=== PATIENT | female | born 1930 | race Caucasian/White ===

== ENCOUNTER → 2016-09-07 | Outpatient (CLI) | payer BC ==
[~2016-09-07] MED LIST: ACET-1311 PO; AGG PO; ATEN50TA8 PO; CHLO10CA7 PO; CNT PO; CRAN1CAP6 PO; GLYB2.5T7 PO; LSN25 PO; LXP10 PO; METH1TAB5 PO; POLYSOL OPB; POLYSOL4 OPB; POTA10CA28 PO; SIMV10TA2 PO; TRIA37.5 PO
== END | disposition home or self-care (01) ==
LOC: C.LABSPEC 12:27
PROVIDERS: ATTEND Internal Medicine
DX: N39.0 Urinary tract infection, site not specified (principal)

== ENCOUNTER → 2017-01-24 | Outpatient (CLI) | payer BC ==
[~2017-01-24] MED LIST changes: -GLYB2.5T7 PO; +METH-1305 PO; -METH1TAB5 PO; -POTA10CA28 PO
== END | disposition home or self-care (01) ==
LOC: C.LABSPEC 14:59
PROVIDERS: ATTEND Internal Medicine
DX: N39.0 Urinary tract infection, site not specified (principal)

== ENCOUNTER → 2017-04-25 | Outpatient (CLI) | payer BC ==
[~2017-04-25] MED LIST changes: -METH-1305 PO; +METH1TAB5 PO
== END | disposition home or self-care (01) ==
LOC: C.LABSPEC 14:42
PROVIDERS: ATTEND Internal Medicine
DX: N39.0 Urinary tract infection, site not specified (principal)

== ENCOUNTER → 2017-06-16 | Outpatient (CLI) | payer BC ==
[~2017-06-16] MED LIST changes: +METH-1305 PO; -METH1TAB5 PO
--- NOTE | 2017-06-16 15:24 | MAMMOGRAPHY REPORT ---
BILATERAL DIGITAL DIAGNOSTIC MAMMOGRAM TOMOSYNTHESIS WITH CAD: 06/16/2017 CLINICAL HISTORY: History of right breast cancer status post lumpectomy Sep 2015. 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 The patient did not have any radiation therapy. The patient denies any current complaints. TECHNIQUE: Breast tomosynthesis in addition to standard 2D mammography was performed. Current study was also evaluated with a Computer Aided Detection (CAD) system. Bilateral CC and MLO 2-D and tomosy nthesis images and spot magnification bilateral cc and ML views were obtained. COMPARISON: Comparison is made to exams dated: 06/13/2016 mammogram, 06/13/2016 specimen, 06/13/2016 localization, 05/17/2016 ultrasound biopsy, and 04/19/2016 ultrasound - [facility]. BREAST COMPOSITION: There are scattered areas of fibroglandular density in both breasts. FINDINGS: There are stable postsurgical changes in the right upper outer quadrant from prior lumpect mercedes, including stable density, architectural distortion, surgical clips, and fat necrosis at the lump ectomy bed. A linear scar marker denotes a scar in the right upper outer breast. There are new post surgical changes in the left upper outer quadrant from prior lumpectomy, including new density, arch itectural distortion, and surgical clips at the lumpectomy bed. A linear scar marker denotes a scar on the left upper outer breast. Spot magnification views of bilateral lumpectomy beds demonstrate no suspicious masses or clusters of microcalcifications. The remainder of both breasts are negative, without suspicious masses, calcifications, or areas of ar chitectural distortion noted. IMPRESSION: ACR-BI-RADS CATEGORY 3: PROBABLY BENIGN Expected postsurgical changes in bilateral breasts from prior lumpectomies, without mammographic evid ence of malignancy. Recommend bilateral diagnostic tomosynthesis mammograms in 6 months to reevaluat e posttreatment changes (30 minute time slot). The patient has been verbally notified of the results. Approximately 10% of breast cancers are not detected with mammography. A negative mammographic report should not delay biopsy if a clinically suggestive mass is present. Fiona Maria M.D. /:06/16/2017 12:15:59 Logging Contractor: Alda Banks, [facility] letter sent: Personal History 3 BI-RADS Code: ACR-BI-RADS Category 3: Probably Benign
== END | disposition home or self-care (01) ==
LOC: C.MAMM 09:10
PROVIDERS: ATTEND Internal Medicine
DX: Z08 Encounter for follow-up examination after completed treatment for malignant neoplasm (principal); Z85.3 Personal history of malignant neoplasm of breast

== ENCOUNTER → 2017-07-27 | Outpatient (CLI) | payer BC ==
[2017-07-27 13:07] LABS: URINE APPEARANCE TURBID (CLEAR); URINE BILIRUBIN NEG (NEG); URINE COLOR DK YELLOW; URINE EPITHELIAL CELL AUTO >30 /lpf (0-5); URINE NITRITE NEG (NEG); URINE PH 7.5 (4.5-7.5); URINE SPECIFIC GRAVITY 1.019 (1.000-1.030); UROBILINOGEN NEG (NEG)
[2017-07-27 13:14] LABS: MANUAL MICROSCOPIC REQUIRED? NO; REVIEW REQ? YES; SULFASALICYLIC ACID NEG (NEG)
== END | disposition home or self-care (01) ==
LOC: C.LABSPEC 12:04
PROVIDERS: ATTEND Internal Medicine
DX: N39.0 Urinary tract infection, site not specified (principal)

== ENCOUNTER 2017-11-12 14:23 | Inpatient (IN) | payer BC, OTHER ==
[~2017-11-12] VITALS: Ht 162.6 cm; Wt 82.0 kg
--- NOTE | 2017-11-12 14:59 | EMERGENCY ROOM VISIT NOTE ---
History Report prepared by Ijeoma: Mary Benavides Under the Supervision of: Dr. Andrae Pop M.D. First contact with patient: 14:47 Chief Complaint: URINARY SYMPTOMS Stated Complaint: UTI History of Present Illness The patient is an 87 year old female who presents to the Emergency Room with complaints of persistent urinary symptoms that started a week ago. The patient started to become confused 3 days ago. Per the patient's family, she slid out of bed this morning and fell on her lower back. She denies any vomiting, shortness of breath, abdominal pain, or rashes. The patient's back has been hurting since last week. The patient typically uses a walker. She is on Aggrenox. The patient is mildly confused. Source of History: patient, family Onset: 1 week ago Position: other (urinary symptoms) Timing: other (persistent) Associated Symptoms: + back pain, + weakness, No SOB, No vomiting, No abdominal pain Review of Systems See HPI for pertinent positives & negatives. A total of 10 systems reviewed and were otherwise negative. Past Medical & Surgical Medical Problems: (1) Breast cancer (2) History of CVA (cerebrovascular accident) (3) Shingles (4) Urinary tract infection Surgical Problems: (1) History of cataract surgery Family History Diabetes mellitus FH: heart disease FHx: cancer Hypertension Social History Smoking Status: Former Smoker Alcohol Use: none Drug Use: none Housing Status: lives alone Occupation Status: retired Current/Historical Medications Scheduled Atenolol (Tenormin), 50 MG PO QAM Chlordiazepoxide (Librium), 10 MG PO BID Cranberry (Vaccinium Macrocarp (Cranberry), 250 MG PO BID Dipyridamole/Aspirin (Aggrenox 25-200 mg), 1 CAP PO BID Escitalopram Oxalate (Escitalopram Oxalate), 10 MG PO QAM Glyburide (Diabeta), 1 TAB PO DAILY Lisinopril (Lisinopril), 2.5 MG PO QAM Methenamine Hippurate (Methenamine Hippurate), 1 GM PO Q12 Multivitamins/Minerals (Certavite/Antioxidants), 1 TAB PO QAM Polyethylene Glycol-Propylene (Systane), 1 DROP OPB HS Polyvinyl Alcohol-Povidone (Op (Refresh), 1 DROP OPB DAILY Potassium Chloride (Klor-Con Sprinkle), 1 CAP PO BID Simvastatin (Zocor), 10 MG PO HS Triamterene/Hctz (Dyazide 37.5MG/25MG), 1 TABLET PO QAM Scheduled PRN Acetaminophen (Tylenol), 650 MG PO q4-6hours PRN for Pain Diphenhydramine HCl (Diphenhydramine HCl), 1 CAP PO Q4 PRN for Itching Allergies Coded Allergies: Cephalexin (Verified Allergy, Intermediate, rash, hives, 11/12/17) Ciprofloxacin (Verified Allergy, Intermediate, hives, 11/12/17) Nitrofurantoin (Verified Allergy, Intermediate, hives, 11/12/17) Penicillins (Verified Allergy, Intermediate, hives, 11/12/17) Ephraim (Verified Allergy, Intermediate, rash, 11/12/17) Sulfa Antibiotics (Verified Allergy, Intermediate, HIVES, 11/12/17) Physical Exam Vital Signs Date Time Temp Pulse Resp B/P (MAP) Pulse Ox O2 Delivery O2 Flow Rate FiO2 11/12/17 16:56 96 Room Air 11/12/17 16:20 65 20 152/77 96 Room Air 11/12/17 14:46 36.3 76 20 108/70 95 Room Air Physical Exam GENERAL: Patient is tired appearing and in no acute distress. Mildly confused, elderly. Difficulty ambulating from wheel chair to bed. EYES: No scleral icterus, unremarkable pupils. ENT: Mucous membranes moist, no nasal congestion. NECK: No masses appreciated, no meningismus, trachea is midline. RESPIRATORY: No dyspnea. Clear to auscultation and equal bilaterally. No wheeze , no rhonchi. CARDIOVASCULAR: Regular rate and rhythm. No murmurs, rubs, gallops appreciated. GASTROINTESTINAL: Abdomen soft, nontender, no peritonitis. Bowel sounds positive. No masses appreciated. BACK: No midline tenderness, no CVA tenderness EXTREMITIES: Normal motion all extremities, no cyanosis, no edema. NEUROLOGIC: Alert and oriented, no acute motor or sensory deficits, no focal weakness, cranial nerves grossly intact. SKIN: No rash, no jaundice, no diaphoresis. Medical Decision & Procedures ER Provider Diagnostic Interpretation: Radiology results and stated below per my review and radiologist interpretation: LUMBAR SPINE 2 OR 3 VIEWS CLINICAL HISTORY: 87 years-old Female presenting with low back pain, UTI. TECHNIQUE: Frontal, lateral, and coned in lateral views of the lumbar spine were obtained. COMPARISON: None. FINDINGS: No significant scoliosis. Normal lumbar lordosis. Vertebral bodies maintain normal height and alignment. Mild intervertebral disc height loss noted at L5-S1 with vacuum disc phenomenon. Remainder of intervertebral discs heights preserved. Multilevel degenerative changes evidenced by osteophytosis to varying degrees at every level. Facet arthropathy suggested at L5-S1 with questionable osseous neural foraminal narrowing at this level. No compression deformity or evidence of subluxation. Atherosclerosis. IMPRESSION: Multilevel degenerative changes without evidence of a compression fracture. Electronically signed by: Obi Guevara M.D. 11/12/2017 4:27 PM Dictated Date/Time: 11/12/2017 4:25 PM CHEST 1 VW FRONT-NOT PORTABLE CLINICAL HISTORY: 87 years-old Female presenting with FEVER. TECHNIQUE: Portable upright AP view of the chest was obtained. COMPARISON: 07/19/2016. FINDINGS: Atherosclerosis of the aortic arch. Cardiac silhouette normal in size. Minimal left basilar opacity. Apparent right apical opacity likely extensive calcification at the first right costochondral joint. No large pleural effusion or pneumothorax. Osseous structures normal. Upper abdomen normal. IMPRESSION: 1. Minimal left basilar opacity likely atelectasis. No convincing evidence of a focal infiltrate to suggest pneumonia. Electronically signed by: Obi Guevara M.D. 11/12/2017 4:25 PM Dictated Date/Time: 11/12/2017 4:24 PM Laboratory Results 11/12/17 15:08 Red Blood Count 4.21, Mean Corpuscular Volume 93.6, Mean Corpuscular Hemoglobin 30.9, Mean Corpuscular Hemoglobin Concent 33.0, Mean Platelet Volume 9.4, Neutrophils (%) (Auto) 59.6, Lymphocytes (%) (Auto) 25.4, Monocytes (%) (Auto) 10.0, Eosinophils (%) (Auto) 4.0, Basophils (%) (Auto) 0.6, Neutrophils # (Auto ) 4.72, Lymphocytes # (Auto) 2.01, Monocytes # (Auto) 0.79, Eosinophils # (Auto ) 0.32, Basophils # (Auto) 0.05 11/12/17 15:08 Test 11/12/17 15:08 11/12/17 15:18 11/12/17 15:30 White Blood Count 7.92 K/uL (4.8-10.8) Red Blood Count 4.21 M/uL (4.2-5.4) Hemoglobin 13.0 g/dL (12.0-16.0) Hematocrit 39.4 % (37-47) Mean Corpuscular Volume 93.6 fL (80-100) Mean Corpuscular Hemoglobin 30.9 pg (25-34) Mean Corpuscular Hemoglobin Concent 33.0 g/dl (32-36) Platelet Count 225 K/uL (130-400) Mean Platelet Volume 9.4 fL (7.4-10.4) Neutrophils (%) (Auto) 59.6 % Lymphocytes (%) (Auto) 25.4 % Monocytes (%) (Auto) 10.0 % Eosinophils (%) (Auto) 4.0 % Basophils (%) (Auto) 0.6 % Neutrophils # (Auto) 4.72 K/uL (1.4-6.5) Lymphocytes # (Auto) 2.01 K/uL (1.2-3.4) Monocytes # (Auto) 0.79 K/uL (0.11-0.59) Eosinophils # (Auto) 0.32 K/uL (0-0.5) Basophils # (Auto) 0.05 K/uL (0-0.2) RDW Standard Deviation 47.3 fL (36.4-46.3) RDW Coefficient of Variation 13.8 % (11.5-14.5) Immature Granulocyte % (Auto) 0.4 % Immature Granulocyte # (Auto) 0.03 K/uL (0.00-0.02) Prothrombin Time 10.5 SECONDS (9.0-12.0) Prothromb Time International Ratio 1.0 (0.9-1.1) Anion Gap 6.0 mmol/L (3-11) Estimated GFR () 30.2 Estimated GFR (Non- 26.1 BUN/Creatinine Ratio 23.8 (10-20) Calcium Level 8.7 mg/dl (8.5-10.1) Total Bilirubin 0.4 mg/dl (0.2-1) Direct Bilirubin 0.1 mg/dl (0-0.2) Aspartate Amino Transf (AST/SGOT) 19 U/L (15-37) Alanine Aminotransferase (ALT/SGPT) 30 U/L (12-78) Alkaline Phosphatase 55 U/L (45-117) Troponin I < 0.015 ng/ml (0-0.045) Total Protein 7.7 gm/dl (6.4-8.2) Albumin 3.6 gm/dl (3.4-5.0) Procalcitonin < 0.05 ng/ml (0-0.5) Bedside Lactic Acid Venous 1.76 mmol/L (0.90-1.70) Urine Color DK YELLOW Urine Appearance CLOUDY (CLEAR) Urine pH 5.0 (4.5-7.5) Urine Specific [place] 1.022 (1.000-1.030) Urine Protein NEG (NEG) Urine Glucose (UA) NEG (NEG) Urine Ketones TRACE (NEG) Urine Occult Blood TRACE (NEG) Urine Nitrite POS (NEG) Urine Bilirubin NEG (NEG) Urine Urobilinogen NEG (NEG) Urine Leukocyte Esterase LARGE (NEG) Urine WBC (Auto) >30 /hpf (0-5) Urine RBC (Auto) 0-4 /hpf (0-4) Urine Hyaline Casts (Auto) 1-5 /lpf (0-5) Urine Epithelial Cells (Auto) >30 /lpf (0-5) Urine Bacteria (Auto) 3+ (NEG) Urine Yeast (Auto) (NONE PRSENT) Laboratory results as reviewed by me. Medications Administered Medications (Trade) Dose Ordered Sig/Salvador Route Start Time Stop Time Status Last Admin Dose Admin Sodium Chloride 500 ml @ 999 mls/hr Q31M STAT IV 11/12/17 15:25 11/12/17 15:55 DC 11/12/17 15:25 999 MLS/HR Vancomycin HCl 1500 mg/Sodium Chloride 530 ml @ 200 mls/hr ONE STAT IV 11/12/17 15:58 11/12/17 18:36 DC 11/12/17 16:16 200 MLS/HR ED Course 1447: The patient was evaluated in room B4B. A complete history and physical exam was performed. 1450: The patient's preliminary urine culture was staphylococcus. 1540: I reevaluated the patient and she is stable. 1630: [place] [facility] [place] suggested to add more antibiotics. The patient will be evaluated for further treatment. Medical Decision Differential: Sepsis, Infectious (UTI/Pneumonia/Meningitis/etc), Metabolic/ Electrolyte Abnormality, Cardiac, Dehydration, Anemia, Hepatic, Endocrine, Toxicologic, Neurologic, amongst other pathologies entertained. Pleasant 87 yr old female arrives for worsening confusion and weakness over last 4 days. 2 Days ago with outpatient UCx which is growing Staph in early culture. She is in no acute distress though is weak and mildly confused. No abodminal TTP and lungs clear. Xrays of chest/back done given confusion and fall on back end this morning. With UTI I do not feel that she requires CT Head to be done at this time. With acute renal issues, confusion and UTI seems reasonable bringing in for IV abx. She is not septic nor in need of 30ml/kg IV fluids. Suspect Lactic acid is up secondary to dehydration though blood cultures were sent. Stable throughout. Medication Reconcilliation Current Medication List: was personally reviewed by me Blood Pressure Screening Patient's blood pressure: Normal blood pressure Consults Time Called: 1620 Consulting Physician: JAIRO Lazcano Returned Call: 1630 I spoke with JAIRO Lazcano and he suggested to add more antibiotics. The patient will be evaluated for further treatment. Impression Primary Impression: Urinary tract infection Additional Impressions: Confusion Acute renal insufficiency Scribe Attestation The scribe's documentation has been prepared under my direction and personally reviewed by me in its entirety. I confirm that the note above accurately reflects all work, treatment, procedures, and medical decision making performed by me. Departure Information Dispostion Being Evaluated By Hospitalist Referrals Zi Ramirez M.D. (PCP) Patient Instructions My [facility] Health Problem Qualifiers
[2017-11-12] MEDS ORDERED: SODIUM CHLORIDE 0.9% 500ML 500 ML IV STA (15:25)
[2017-11-12 15:27] LABS: BASO % 0.6 %; BASO ABS # 0.05 K/uL (0-0.2); EOS ABS # 0.32 K/uL (0-0.5); HEMATOCRIT 39.4 % (37-47); IG# 0.03 K/uL (0.00-0.02); LYMPH % 25.4 %; LYMPH ABS # 2.01 K/uL (1.2-3.4); MEAN CELL VOLUME 93.6 fL (80-100); MEAN CORPUSCULAR HEMOGLOBIN 30.9 pg (25-34); MEAN PLATELET VOLUME 9.4 fL (7.4-10.4); MONO ABS # 0.79 K/uL (0.11-0.59); NEUT % 59.6 %; NEUT ABS # 4.72 K/uL (1.4-6.5); PLATELET COUNT 225 K/uL (130-400); RED CELL DISTRIBUTION WIDTH CV 13.8 % (11.5-14.5); RED CELL DISTRIBUTION WIDTH SD 47.3 fL (36.4-46.3); WHITE BLOOD COUNT 7.92 K/uL (4.8-10.8)
[2017-11-12 15:44] LABS: ALBUMIN 3.6 gm/dl (3.4-5.0); ALT/SGPT 30 U/L (12-78); BLOOD UREA NITROGEN 41 mg/dl (7-18); CALCIUM 8.7 mg/dl (8.5-10.1); CARBON DIOXIDE 30 mmol/L (21-32); CREATININE 1.73 mg/dl (0.60-1.20); GLUCOSE 203 mg/dl (70-99); POTASSIUM 4.4 mmol/L (3.5-5.1); SODIUM 141 mmol/L (136-145)
[2017-11-12 15:48] LABS: ALKALINE PHOSPHATASE 55 U/L (45-117); AST/SGOT 19 U/L (15-37); TOTAL PROTEIN 7.7 gm/dl (6.4-8.2)
[2017-11-12] MEDS ORDERED: VANCOMYCIN IV 1,500 MG in SODIUM CHLORIDE 0.9% 500ML 500 ML IV STA (15:58)
[2017-11-12] MEDS ORDERED: VANCOMYCIN CONSULT ACTIVE PRN ×2 (16:00→17:00)
[2017-11-12] MEDS ORDERED: DIPH25CA48 PO (16:12)
[2017-11-12] MEDS ORDERED: GLYB2.5T7 PO (16:14)
[2017-11-12] MEDS ORDERED: POTA1CAP53 PO (16:16)
--- NOTE | 2017-11-12 16:27 | DIAGNOSTIC IMAGING REPORT ---
CHEST 1 VW FRONT-NOT PORTABLE CLINICAL HISTORY: 87 years-old Female presenting with FEVER. TECHNIQUE: Portable upright AP view of the chest was obtained. COMPARISON: 07/19/2016. FINDINGS: Atherosclerosis of the aortic arch. Cardiac silhouette normal in size. Minimal left basilar opacity. Apparent right apical opacity likely extensive calcification at the first right costochondral joint. No large pleural effusion or pneumothorax. Osseous structures normal. Upper abdomen normal. IMPRESSION: 1. Minimal left basilar opacity likely atelectasis. No convincing evidence of a focal infiltrate to suggest pneumonia. Electronically signed by: Obi Guevara M.D. 11/12/2017 4:25 PM Dictated Date/Time: 11/12/2017 4:24 PM
--- NOTE | 2017-11-12 16:29 | DIAGNOSTIC IMAGING REPORT ---
LUMBAR SPINE 2 OR 3 VIEWS CLINICAL HISTORY: 87 years-old Female presenting with low back pain, UTI. TECHNIQUE: Frontal, lateral, and coned in lateral views of the lumbar spine were obtained. COMPARISON: None. FINDINGS: No significant scoliosis. Normal lumbar lordosis. Vertebral bodies maintain normal height and alignment. Mild intervertebral disc height loss noted at L5-S1 with vacuum disc phenomenon. Remainder of intervertebral discs heights preserved. Multilevel degenerative changes evidenced by osteophytosis to varying degrees at every level. Facet arthropathy suggested at L5-S1 with questionable osseous neural foraminal narrowing at this level. No compression deformity or evidence of subluxation. Atherosclerosis. IMPRESSION: Multilevel degenerative changes without evidence of a compression fracture. Electronically signed by: Obi Guevara M.D. 11/12/2017 4:27 PM Dictated Date/Time: 11/12/2017 4:25 PM
[2017-11-12] MEDS ORDERED: AZTREONAM IV 2,000 MG in DEXTROSE 5% 100ML 100 ML IV SCH (16:30)
[2017-11-12 16:56] VITALS: O2SAT 96; Ht 162.6 cm; Wt 82.0 kg
[2017-11-12] MEDS ORDERED: GLUCOSE 10 TABS/TUBE PO PRN (17:00)
[2017-11-12] MEDS ORDERED: DEXTROSE 50% 50 ML SYR IV PRN (17:00)
[2017-11-12] MEDS ORDERED: ALUMINUM/MAGNESIUM/SIMETH (MAALOX MAX) 30 ML UDC PO PRN (17:00)
[2017-11-12] MEDS ORDERED: GLUCAGON FOR INJ 1 MG VIAL SQ PRN (17:00)
[2017-11-12] MEDS ORDERED: GLUCOSE 40% GEL 15 GM TUBE PO PRN (17:00)
[2017-11-12] MEDS ORDERED: ACETAMINOPHEN 325 MG TAB PO PRN (17:00)
[2017-11-12] MEDS ORDERED: ONDANSETRON INJ 2 MG/ML 2 ML VIAL IV PRN (17:00)
[2017-11-12] MEDS ORDERED: MAGNESIUM HYDROXIDE SUSP 30 ML UDC PO PRN (17:00)
--- NOTE | 2017-11-12 17:17 | History and Physical ---
History & Physical Date & Time of Service: Nov 12, 2017 at 17:03 Chief Complaint: UTI Primary Care Physician: Zi Ramirez M.D. 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 Presented to the ED with 3 days history of gradual confusion and increased urinary frequency. As an outpatient urine culture was done and as per family teddy covarrubias, will retrieve official results tomorrow. Patient is pleasant answered all questions follow simple command. But as per family occasionally in the last 3 days she is to do unusual things. She was found to be dressed getting ready to go out although she was not supposed to go anywhere. She was brought to the ED and was found to have acute kidney injury, creatinine 1.7, last creatinine was more than a year ago but was 0.8. Patient is also taking lisinopril, hydrochlorothiazide and triamterene for her blood pressure. Family said she has decreased oral intake and dehydration since she got confused for the last 3 days that might be contributing to her acute kidney injury. Patient denies any chest pain or shortness of breath. Past Medical/Surgical History Medical Problems: (1) Altered mental status (2) Breast cancer (3) History of CVA (cerebrovascular accident) (4) Left facial pain (5) Perforated ear drum (6) Perforated ear drum (7) Shingles (8) Urinary tract infection (9) Urinary tract infection Surgical Problems: (1) History of cataract surgery Family History Diabetes mellitus FH: heart disease FHx: cancer Hypertension Social History Smoking Status: Former Smoker Drug Use: none Occupational Status: retired Allergies Coded Allergies: Cephalexin (Verified Allergy, Intermediate, rash, hives, 11/12/17) Ciprofloxacin (Verified Allergy, Intermediate, hives, 11/12/17) Nitrofurantoin (Verified Allergy, Intermediate, hives, 11/12/17) Penicillins (Verified Allergy, Intermediate, hives, 11/12/17) [place] (Verified Allergy, Intermediate, rash, 11/12/17) Sulfa Antibiotics (Verified Allergy, Intermediate, HIVES, 11/12/17) Home Medications Scheduled Atenolol (Tenormin), 50 MG PO QAM Chlordiazepoxide (Librium), 10 MG PO BID Cranberry (Vaccinium Macrocarp (Cranberry), 250 MG PO BID Dipyridamole/Aspirin (Aggrenox 25-200 mg), 1 CAP PO BID Escitalopram Oxalate (Escitalopram Oxalate), 10 MG PO QAM Glyburide (Diabeta), 1 TAB PO DAILY Lisinopril (Lisinopril), 2.5 MG PO QAM Methenamine Hippurate (Methenamine Hippurate), 1 GM PO Q12 Multivitamins/Minerals (Certavite/Antioxidants), 1 TAB PO QAM Polyethylene Glycol-Propylene (Systane), 1 DROP OPB HS Polyvinyl Alcohol-Povidone (Op (Refresh), 1 DROP OPB DAILY Potassium Chloride (Klor-Con Sprinkle), 1 CAP PO BID Simvastatin (Zocor), 10 MG PO HS Triamterene/Hctz (Dyazide 37.5MG/25MG), 1 TABLET PO QAM Scheduled PRN Acetaminophen (Tylenol), 650 MG PO q4-6hours PRN for Pain Diphenhydramine HCl (Diphenhydramine HCl), 1 CAP PO Q4 PRN for Itching Review of Systems Review of system Constitutional: No fever / no chills / no sweats / no weakness / no fatigue Eyes: no blurring of vision / no eye pain / no discharge / no redness ENT: no hearing loss / no epistaxis /no swallowing problems Respiratory: no cough / no wheezing / no SOB / no hemoptysis Cardiovascular: no Chest pain / no lower extremity edema / no palpitation Abdomen: no pain / no nausea / no vomiting / no constipation Musculoskeletal: no joint pain / no muscle pain / no joint swelling, bilateral calf muscle pain Genitourinary: no dysuria / no incontinence / no urinary retention, positive for increased frequency of urination Neurologic: Baseline right-sided focal weakness / no numbness/tingling / no ataxia, confusion as per family Psychiatric: no depression symptoms / no anxiety / no insomnia Endocrine: no excessive thirst / no excessive urination Hematologic: no abnormal bleeding / no bruising / no LN swelling Skin: No rash / no pallor Physical Exam Vital Signs Date Time Temp Pulse Resp B/P (MAP) Pulse Ox O2 Delivery O2 Flow Rate FiO2 11/12/17 16:20 65 20 152/77 96 Room Air 11/12/17 14:46 36.3 76 20 108/70 95 Room Air Physical examination General patient appears to be comfortable, not in acute distress HEENT: Atraumatic , normocephalic /no jaundice /no pallor /anicteric /no dry mucous membrane /normal external ear inspection Neck: Supple /no swelling /central trach Heart: S1/S2 normal/regular rate and rhythm/no gallop /no rub /no murmur Lungs: Clear to auscultation bilaterally/normal chest with expansion/no rhonchi/ no rales/no wheezing/no use of accessory muscles of respiration Abdomen: Soft/nontender/no guarding/no rebound/no organomegaly/no pulsatile mass Musculoskeletal: No swelling/no edema/no tenderness/normal range of motion Neuro exam: Awake alert oriented 2, slightly confused but pleasant/cranial nerves II through XII appear to be intact/sensation intact/moves all extremities /no abnormal movements Psychiatric evaluation: No depressed mood/normal affect Skin: No rash on exposed skin area/no erythema Extremity: Normal pulse/no pitting edema/no clubbing or cyanosis, tenderness and calf muscle bilaterally with no significant erythema or swelling Endocrine/lymphatic: No obvious lymphadenopathy /no lymphedema Diagnostics Laboratory Results Results Past 24 Hours Test 11/12/17 15:08 11/12/17 15:18 11/12/17 15:30 11/12/17 16:49 Range/Units White Blood Count 7.92 4.8-10.8 K/uL Red Blood Count 4.21 4.2-5.4 M/uL Hemoglobin 13.0 12.0-16.0 g/dL Hematocrit 39.4 37-47 % Mean Corpuscular Volume 93.6 80-100 fL Mean Corpuscular Hemoglobin 30.9 25-34 pg Mean Corpuscular Hemoglobin Concent 33.0 32-36 g/dl Platelet Count 225 130-400 K/uL Mean Platelet Volume 9.4 7.4-10.4 fL Neutrophils (%) (Auto) 59.6 % Lymphocytes (%) (Auto) 25.4 % Monocytes (%) (Auto) 10.0 % Eosinophils (%) (Auto) 4.0 % Basophils (%) (Auto) 0.6 % Neutrophils # (Auto) 4.72 1.4-6.5 K/uL Lymphocytes # (Auto) 2.01 1.2-3.4 K/uL Monocytes # (Auto) 0.79 0.11-0.59 K/uL Eosinophils # (Auto) 0.32 0-0.5 K/uL Basophils # (Auto) 0.05 0-0.2 K/uL RDW Standard Deviation 47.3 36.4-46.3 fL RDW Coefficient of Variation 13.8 11.5-14.5 % Immature Granulocyte % (Auto) 0.4 % Immature Granulocyte # (Auto) 0.03 0.00-0.02 K/uL Prothrombin Time 10.5 9.0-12.0 SECONDS Prothromb Time International Ratio 1.0 0.9-1.1 Sodium Level 141 136-145 mmol/L Potassium Level 4.4 3.5-5.1 mmol/L Chloride Level 105 98-107 mmol/L Carbon Dioxide Level 30 21-32 mmol/L Anion Gap 6.0 3-11 mmol/L Blood Urea Nitrogen 41 7-18 mg/dl Creatinine 1.73 0.60-1.20 mg/dl Estimated GFR () 30.2 Estimated GFR (Non- 26.1 BUN/Creatinine Ratio 23.8 10-20 Random Glucose 203 70-99 mg/dl Calcium Level 8.7 8.5-10.1 mg/dl Total Bilirubin 0.4 0.2-1 mg/dl Direct Bilirubin 0.1 0-0.2 mg/dl Aspartate Amino Transf (AST/SGOT) 19 15-37 U/L Alanine Aminotransferase (ALT/SGPT) 30 12-78 U/L Alkaline Phosphatase 55 45-117 U/L Troponin I < 0.015 0-0.045 ng/ml Total Protein 7.7 6.4-8.2 gm/dl Albumin 3.6 3.4-5.0 gm/dl Bedside Lactic Acid Venous 1.76 0.90-1.70 mmol/L Urine Color DK YELLOW Urine Appearance CLOUDY CLEAR Urine pH 5.0 4.5-7.5 Urine Specific [place] 1.022 1.000-1.030 Urine Protein NEG NEG Urine Glucose (UA) NEG NEG Urine Ketones TRACE NEG Urine Occult Blood TRACE NEG Urine Nitrite POS NEG Urine Bilirubin NEG NEG Urine Urobilinogen NEG NEG Urine Leukocyte Esterase LARGE NEG Urine WBC (Auto) >30 0-5 /hpf Urine RBC (Auto) 0-4 0-4 /hpf Urine Hyaline Casts (Auto) 1-5 0-5 /lpf Urine Epithelial Cells (Auto) >30 0-5 /lpf Urine Yeast (Auto) NONE PRSENT Microbiology Results 11/12/17 Blood Culture, Received Pending 11/12/17 Blood Culture, Received Pending 11/12/17 Urine Culture, Received Pending Impression Assessment and Plan 87-year-old female with past medical history of hypertension, diabetes mellitus on oral hypoglycemic, 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 Presented to the ED with 3 days history of gradual confusion and increased urinary frequency. As an outpatient urine culture was done and as per family growing staph, will retrieve official results tomorrow. Presented to the hospital with UTI, metabolic encephalopathy, acute kidney injury and bilateral lower extremity calf muscle pain Assessment Metabolic encephalopathy secondary to below Sepsis present on admission secondary to below UTI present on admission Acute kidney injury secondary to below Dehydration/decreased oral intake 3 days plus lisinopril/hydrochlorothiazide/ triamterene Hypertension Diabetes mellitus and oral hypoglycemic History of CVA in 2001 currently on Aggrenox with residual right-sided weakness Bilateral calf muscle pain Plan Admit to [facility] since all her vitals are within normal limits Continue home medications except lisinopril, hydrochlorothiazide, triamterene Continue atenolol, will add hydralazine IV as needed systolic blood pressure more than 170 IV fluid hydration Follow-up blood cultures and urine culture Start patient on Vanco/aztreonam as she has multiple allergies Lactobacillus to prevent C. difficile Ultrasound renal rule out perirenal abscess, obstructive uropathy Ultrasound lower extremity rule out DVT Heparin subcu twice daily for DVT peripheral PT/OT Resuscitation Status VTE Prophylaxis Will order VTE Prophylaxis: Yes
[2017-11-12] MEDS ORDERED: HydrALAZINE HCL 20 MG/ML VIAL IV. PRN (17:30)
--- NOTE | 2017-11-12 17:57 | DIAGNOSTIC IMAGING REPORT ---
(RENAL)RETROPERITON COMP CLINICAL HISTORY: 87 years-old Female presenting with ANKUR. TECHNIQUE: Real-time grayscale and limited color Doppler ultrasound imaging of the kidneys and bladder was performed. COMPARISON: None. FINDINGS: Right kidney: Normal echogenicity of renal parenchyma though there may be cortical thinning. Right kidney measures 11.7 cm. No hydronephrosis. Multiple cysts noted the largest in the interpolar region measuring 3.1 cm. Left kidney: Normal echogenicity of renal parenchyma though there may be cortical thinning. Left kidney measures 9.9 cm. No hydronephrosis. Multiple cysts noted, the largest measuring 1.5 cm. Bladder: Normal. Bilateral ureteral jets present. Other: Suggestion of hepatic steatosis. IMPRESSION: 1. No hydronephrosis. 2. Possible cortical thinning of the kidneys suggest chronic medical renal disease. 3. Multiple bilateral renal cysts. 4. Possible hepatic steatosis. Electronically signed by: Obi Guevara M.D. 11/12/2017 5:56 PM Dictated Date/Time: 11/12/2017 5:54 PM
[2017-11-12] MEDS ORDERED: LACTOBACILLUS ACIDOPHILUS (FLORANEX) TAB PO SCH (18:00)
--- NOTE | 2017-11-12 18:00 | DIAGNOSTIC IMAGING REPORT ---
VENOUS DOPPLER LWR EXT BILA CLINICAL HISTORY: 87 years-old Female presenting with lower ext calf pain r/o dvt. TECHNIQUE: Real-time grayscale and color and spectral Doppler ultrasound imaging of the veins of the bilateral lower extremities was performed. Compression and augmentation were also utilized. COMPARISON: None. FINDINGS: Right: Common femoral vein: Patent. Greater saphenous vein: Patent. Deep femoral vein: Patent. Femoral vein: Patent. Popliteal vein: Patent. Calf veins: Patent. Left: Common femoral vein: Patent. Greater saphenous vein: Patent. Deep femoral vein: Patent. Femoral vein: Patent. Popliteal vein: Patent. Calf veins: Patent. Other: None. IMPRESSION: No evidence of deep venous thrombosis. Electronically signed by: Obi Guevara M.D. 11/12/2017 5:58 PM Dictated Date/Time: 11/12/2017 5:58 PM
[2017-11-12 18:13] VITALS: BP 145/73; PULSE 63; TEMP 36.6; O2SAT 93
[2017-11-12] MEDS ORDERED: CRANBERRY PO SCH (20:00)
[2017-11-12] MEDS: SIMVASTATIN 10 MG TAB PO SCH (20:40)
[2017-11-12] MEDS: CHLORDIAZEPOXIDE 10 MG CAP PO SCH (20:40)
[2017-11-12] MEDS: DIPYRIDAMOLE/ASPIRIN CAP PO SCH (20:41)
[2017-11-12] MEDS: HEPARIN SOD 5000 UNIT/0.5 ML CARP SQ SCH (20:43)
[2017-11-12] MEDS: INSULIN ASPART 100 UNITS/ML 3 ML PEN SC SCH (20:47)
[2017-11-12] MEDS ORDERED: POLYETHYLENE (MIRALAX) 17 GM PACK PO PRN (21:00)
[2017-11-12] MEDS ORDERED: AZTREONAM 2000 MG in DEXTROSE 5% 100 ML IV SCH (21:30)
[2017-11-12] MEDS: SODIUM CHLORIDE 0.9% 1000ML 1,000 ML IV SCH (22:22)
[2017-11-12] MEDS: ARTIFICIAL TEARS OP SOLN OPB SCH (22:27)
[2017-11-13 00:21] VITALS: BP 145/77; PULSE 66; TEMP 36.5; O2SAT 96
[2017-11-13] MEDS: AZTREONAM IV 1,000 MG in DEXTROSE 5% 100ML 100 ML IV SCH ×3 (04:06→20:07)
[2017-11-13 06:29] LABS: BASO % 0.1 %; BASO ABS # 0.01 K/uL (0-0.2); EOS % 6.4 %; EOS ABS # 0.45 K/uL (0-0.5); HEMATOCRIT 37.2 % (37-47); HEMOGLOBIN 12.1 g/dL (12.0-16.0); IG# 0.02 K/uL (0.00-0.02); LYMPH % 25.7 %; LYMPH ABS # 1.81 K/uL (1.2-3.4); MEAN CELL VOLUME 93.5 fL (80-100); MEAN CORPUSCULAR HEMOGLOBIN 30.4 pg (25-34); MEAN CORPUSCULAR HGB CONC 32.5 g/dl (32-36); MEAN PLATELET VOLUME 9.5 fL (7.4-10.4); MONO % 9.5 %; MONO ABS # 0.67 K/uL (0.11-0.59); NEUT ABS # 4.07 K/uL (1.4-6.5); PLATELET COUNT 200 K/uL (130-400); RED CELL DISTRIBUTION WIDTH CV 13.8 % (11.5-14.5); RED CELL DISTRIBUTION WIDTH SD 47.3 fL (36.4-46.3); WHITE BLOOD COUNT 7.03 K/uL (4.8-10.8)
[2017-11-13] MEDS ORDERED: VANCOMYCIN CONSULT ACTIVE PRN (07:00)
[2017-11-13 07:09] LABS: ALBUMIN 3.3 gm/dl (3.4-5.0); CALCIUM 8.5 mg/dl (8.5-10.1); CREATININE 0.99 mg/dl (0.60-1.20); POTASSIUM 3.8 mmol/L (3.5-5.1); TOTAL PROTEIN 6.9 gm/dl (6.4-8.2)
[2017-11-13] MEDS: CHLORDIAZEPOXIDE 10 MG CAP PO SCH ×2 (07:36→21:14)
[2017-11-13] MEDS: ARTIFICIAL TEARS OP SOLN OPB SCH ×2 (07:36→21:15)
[2017-11-13] MEDS: DIPYRIDAMOLE/ASPIRIN CAP PO SCH ×2 (07:36→21:14)
[2017-11-13] MEDS: ESCITALOPRAM OXALATE 10 MG TAB PO SCH (07:37)
[2017-11-13] MEDS: LACTOBACILLUS ACIDOPHILUS (FLORANEX) TAB PO SCH ×3 (07:37→17:15)
[2017-11-13] MEDS: CEROVITE ADV FORMULA TAB PO SCH (07:37)
[2017-11-13] MEDS: HEPARIN SOD 5000 UNIT/0.5 ML CARP SQ SCH ×2 (07:39→21:39)
[2017-11-13 07:43] LABS: HEMOGLOBIN A1C 7.1 % (4.5-5.6)
[2017-11-13 08:09] VITALS: BP 145/71; PULSE 63; TEMP 36.8; O2SAT 93
--- NOTE | 2017-11-13 08:42 | Hospitalist Progress Note ---
Hospitalist Progress Note Date of Service Nov 13, 2017. (Denise Shepherd PA-C) Subjective Pt evaluation today including: conversation w/ patient, physical exam, chart review, lab review, review of studies Pain: None PO Intake: Good Voiding: no voiding problems, no incontinence The patient was seen and examined this morning. Pt reports feeling well today. She denies any issues with dysuria, burning, blood in urine. She is attempting to put on her socks and shoes to get up and ambulate. The patient typically uses a walker at baseline, she is from [place] and typically lives independently. The patient understands when I asked her to call a nurse to help her get up. Additional Comments: Constitutional: No fever, sweats or chills Eyes: No diplopia, no worsening or blurred vision ENT: normal hearing, no trouble swallowing Respiratory: No cough, sputum, dyspnea at rest or on exertion Cardiovascular: No chest pain, tightness or palpitations Abdomen: No pain, nausea, vomiting, diarrhea or constipation Musculoskeletal: No joint pain, calf pain, swelling Neurologic: No weakness, numbness/tingling, or balance problems Psychiatric: No anxiety or depression Skin: No rash or itch (Denise Shepherd PA-C) Objective Vital Signs Date Time Temp Pulse Resp B/P (MAP) Pulse Ox O2 Delivery O2 Flow Rate FiO2 11/13/17 08:09 36.8 63 18 145/71 (95) 93 Room Air 11/13/17 00:30 Room Air 11/13/17 00:21 36.5 66 18 145/77 (99) 96 Room Air 11/12/17 20:15 Room Air 11/12/17 18:13 36.6 63 18 145/73 (97) 93 Room Air 11/12/17 16:56 96 Room Air 11/12/17 16:20 65 20 152/77 96 Room Air 11/12/17 14:46 36.3 76 20 108/70 95 Room Air (Denise Shepherd PA-C) Physical Exam Notes: General: awake, alert, no apparent distress, attempting to put on her own socks and shoes. Head: Normocephalic, atraumatic ENT: PERRL, EOMI, no pharyngeal exudate, mucous membranes moist Chest: Clear to auscultation, on room air, no adventitious breath sounds Cardiac: Regular rate and rhythm, no murmur, no JVD, normal peripheral pulses, good capillary refill Abdominal: NABS x 4 quadrants, soft, nontender to palpation, no rebound, guarding or tenderness Extremities: Normal inspection, no peripheral edema or erythema, calfs nontender to palpation Psych: Normal mood and affect Neuro: awake, alert, oriented to place and self, not to date or time or president. speech is clear, no peripheral sensory deficits (Denise Shepherd, DOROTHY) Laboratory Results Last 24 Hours Test 11/12/17 15:08 11/12/17 15:18 11/12/17 15:30 11/12/17 18:06 White Blood Count 7.92 K/uL Red Blood Count 4.21 M/uL Hemoglobin 13.0 g/dL Hematocrit 39.4 % Mean Corpuscular Volume 93.6 fL Mean Corpuscular Hemoglobin 30.9 pg Mean Corpuscular Hemoglobin Concent 33.0 g/dl Platelet Count 225 K/uL Mean Platelet Volume 9.4 fL Neutrophils (%) (Auto) 59.6 % Lymphocytes (%) (Auto) 25.4 % Monocytes (%) (Auto) 10.0 % Eosinophils (%) (Auto) 4.0 % Basophils (%) (Auto) 0.6 % Neutrophils # (Auto) 4.72 K/uL Lymphocytes # (Auto) 2.01 K/uL Monocytes # (Auto) 0.79 K/uL Eosinophils # (Auto) 0.32 K/uL Basophils # (Auto) 0.05 K/uL RDW Standard Deviation 47.3 fL RDW Coefficient of Variation 13.8 % Immature Granulocyte % (Auto) 0.4 % Immature Granulocyte # (Auto) 0.03 K/uL Prothrombin Time 10.5 SECONDS Prothromb Time International Ratio 1.0 Sodium Level 141 mmol/L Potassium Level 4.4 mmol/L Chloride Level 105 mmol/L Carbon Dioxide Level 30 mmol/L Anion Gap 6.0 mmol/L Blood Urea Nitrogen 41 mg/dl Creatinine 1.73 mg/dl Estimated GFR () 30.2 Estimated GFR (Non- 26.1 BUN/Creatinine Ratio 23.8 Random Glucose 203 mg/dl Calcium Level 8.7 mg/dl Total Bilirubin 0.4 mg/dl Direct Bilirubin 0.1 mg/dl Aspartate Amino Transf (AST/SGOT) 19 U/L Alanine Aminotransferase (ALT/SGPT) 30 U/L Alkaline Phosphatase 55 U/L Troponin I < 0.015 ng/ml Total Protein 7.7 gm/dl Albumin 3.6 gm/dl Procalcitonin < 0.05 ng/ml Bedside Lactic Acid Venous 1.76 mmol/L Urine Color DK YELLOW Urine Appearance CLOUDY Urine pH 5.0 Urine Specific [place] 1.022 Urine Protein NEG Urine Glucose (UA) NEG Urine Ketones TRACE Urine Occult Blood TRACE Urine Nitrite POS Urine Bilirubin NEG Urine Urobilinogen NEG Urine Leukocyte Esterase LARGE Urine WBC (Auto) >30 /hpf Urine RBC (Auto) 0-4 /hpf Urine Hyaline Casts (Auto) 1-5 /lpf Urine Epithelial Cells (Auto) >30 /lpf Urine Bacteria (Auto) 3+ Urine Yeast (Auto) Bedside Glucose 140 mg/dl Test 11/12/17 20:33 11/13/17 06:02 11/13/17 07:44 Bedside Glucose 95 mg/dl 124 mg/dl White Blood Count 7.03 K/uL Red Blood Count 3.98 M/uL Hemoglobin 12.1 g/dL Hematocrit 37.2 % Mean Corpuscular Volume 93.5 fL Mean Corpuscular Hemoglobin 30.4 pg Mean Corpuscular Hemoglobin Concent 32.5 g/dl Platelet Count 200 K/uL Mean Platelet Volume 9.5 fL Neutrophils (%) (Auto) 58.0 % Lymphocytes (%) (Auto) 25.7 % Monocytes (%) (Auto) 9.5 % Eosinophils (%) (Auto) 6.4 % Basophils (%) (Auto) 0.1 % Neutrophils # (Auto) 4.07 K/uL Lymphocytes # (Auto) 1.81 K/uL Monocytes # (Auto) 0.67 K/uL Eosinophils # (Auto) 0.45 K/uL Basophils # (Auto) 0.01 K/uL RDW Standard Deviation 47.3 fL RDW Coefficient of Variation 13.8 % Immature Granulocyte % (Auto) 0.3 % Immature Granulocyte # (Auto) 0.02 K/uL Sodium Level 141 mmol/L Potassium Level 3.8 mmol/L Chloride Level 106 mmol/L Carbon Dioxide Level 26 mmol/L Anion Gap 9.0 mmol/L Blood Urea Nitrogen 29 mg/dl Creatinine 0.99 mg/dl Est Creatinine Clear Calc Drug Dose 41.5 ml/min Estimated GFR () 59.4 Estimated GFR (Non- 51.2 BUN/Creatinine Ratio 29.3 Random Glucose 123 mg/dl Estimated Average Glucose 157 mg/dl Hemoglobin A1c 7.1 % Calcium Level 8.5 mg/dl Magnesium Level 2.2 mg/dl Total Bilirubin 0.4 mg/dl Aspartate Amino Transf (AST/SGOT) 17 U/L Alanine Aminotransferase (ALT/SGPT) 23 U/L Alkaline Phosphatase 49 U/L Total Protein 6.9 gm/dl Albumin 3.3 gm/dl Globulin 3.6 gm/dl Albumin/Globulin Ratio 0.9 (Denise Shepherd PA-C) Assessment and Plan 87 yo F with history of hypertension, diabetes mellitus on oral hypoglycemic, 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 Metabolic encephalopathy secondary to Sepsis present on admission secondary to UTI present on admission - IV fluid hydration - Follow-up blood cultures and urine culture - Start patient on Vanco/aztreonam as she has multiple allergies - Lactobacillus to prevent C. difficile Acute kidney injury secondary UTI - Cr improved from 1.7 to 0.99 - Continue hydration- will encourage oral hydrating - Ultrasound renal rule out perirenal abscess, obstructive uropathy Dehydration/decreased oral intake 3 days plus lisinopril/hydrochlorothiazide/ triamterene Hypertension - Continue home medications except lisinopril, hydrochlorothiazide, triamterene - BP remains in the 140s systolically - Continue atenolol, will add hydralazine IV as needed systolic blood pressure more than 170 Diabetes mellitus and oral hypoglycemic - ISS with accuchecks History of CVA in 2001 currently on Aggrenox with residual right-sided weakness - PT/OT consults - pt encouraged to call nursing for assistance - from [facility] Bilateral calf muscle pain - Ultrasound lower extremity rule out DVT is negative. DVT ppx: Heparin subcu Disposition: From [facility], pt/ot [facility] pimentel to assist with dc planning - possible in 1-2 days. (Denise Shepherd PA-C) Supervising Note Dr. South I performed a history and physical examination on the patient. I reviewed above note and agree with it. I discussed plan with APC and patient. During my face to face encounter with the patient, I answered all of the patient's questions. Patient very confused when I examined her. She pulled out two IV lines in past 2 hours. Will order a 1 to 1 for now. (Isaías South M.D.)
--- NOTE | 2017-11-13 08:57 | Pharmacy Progress Note ---
Pharmacy Antibiotic Consult Date of Service: Nov 13, 2017. Pharmacy Dosing Scope Pharmacy is consulted to initiate vancomycin IV dosing therapy, order appropriate labs and adjust drug dose/frequency. Subjective The patient is a 87 year old female admitted on Nov 12, 2017 at 17:02. Objective Height (Feet): 5 Height (Inches): 4.00 Weight (Kilograms): 82.000 Lab Results (24hrs): Test 11/12/17 15:08 11/12/17 15:18 11/12/17 15:30 11/12/17 20:33 White Blood Count 7.92 K/uL (4.8-10.8) Red Blood Count 4.21 M/uL (4.2-5.4) Hemoglobin 13.0 g/dL (12.0-16.0) Hematocrit 39.4 % (37-47) Mean Corpuscular Volume 93.6 fL (80-100) Mean Corpuscular Hemoglobin 30.9 pg (25-34) Mean Corpuscular Hemoglobin Concent 33.0 g/dl (32-36) Platelet Count 225 K/uL (130-400) Mean Platelet Volume 9.4 fL (7.4-10.4) Neutrophils (%) (Auto) 59.6 % Lymphocytes (%) (Auto) 25.4 % Monocytes (%) (Auto) 10.0 % Eosinophils (%) (Auto) 4.0 % Basophils (%) (Auto) 0.6 % Neutrophils # (Auto) 4.72 K/uL (1.4-6.5) Lymphocytes # (Auto) 2.01 K/uL (1.2-3.4) Monocytes # (Auto) 0.79 K/uL (0.11-0.59) Eosinophils # (Auto) 0.32 K/uL (0-0.5) Basophils # (Auto) 0.05 K/uL (0-0.2) RDW Standard Deviation 47.3 fL (36.4-46.3) RDW Coefficient of Variation 13.8 % (11.5-14.5) Immature Granulocyte % (Auto) 0.4 % Immature Granulocyte # (Auto) 0.03 K/uL (0.00-0.02) Prothrombin Time 10.5 SECONDS (9.0-12.0) Prothromb Time International Ratio 1.0 (0.9-1.1) Sodium Level 141 mmol/L (136-145) Potassium Level 4.4 mmol/L (3.5-5.1) Chloride Level 105 mmol/L (98-107) Carbon Dioxide Level 30 mmol/L (21-32) Anion Gap 6.0 mmol/L (3-11) Blood Urea Nitrogen 41 mg/dl (7-18) Creatinine 1.73 mg/dl (0.60-1.20) Estimated GFR () 30.2 Estimated GFR (Non- 26.1 BUN/Creatinine Ratio 23.8 (10-20) Random Glucose 203 mg/dl (70-99) Calcium Level 8.7 mg/dl (8.5-10.1) Total Bilirubin 0.4 mg/dl (0.2-1) Direct Bilirubin 0.1 mg/dl (0-0.2) Aspartate Amino Transf (AST/SGOT) 19 U/L (15-37) Alanine Aminotransferase (ALT/SGPT) 30 U/L (12-78) Alkaline Phosphatase 55 U/L (45-117) Troponin I < 0.015 ng/ml (0-0.045) Total Protein 7.7 gm/dl (6.4-8.2) Albumin 3.6 gm/dl (3.4-5.0) Procalcitonin < 0.05 ng/ml (0-0.5) Bedside Lactic Acid Venous 1.76 mmol/L (0.90-1.70) Urine Color DK YELLOW Urine Appearance CLOUDY (CLEAR) Urine pH 5.0 (4.5-7.5) Urine Specific [place] 1.022 (1.000-1.030) Urine Protein NEG (NEG) Urine Glucose (UA) NEG (NEG) Urine Ketones TRACE (NEG) Urine Occult Blood TRACE (NEG) Urine Nitrite POS (NEG) Urine Bilirubin NEG (NEG) Urine Urobilinogen NEG (NEG) Urine Leukocyte Esterase LARGE (NEG) Urine WBC (Auto) >30 /hpf (0-5) Urine RBC (Auto) 0-4 /hpf (0-4) Urine Hyaline Casts (Auto) 1-5 /lpf (0-5) Urine Epithelial Cells (Auto) >30 /lpf (0-5) Urine Bacteria (Auto) 3+ (NEG) Urine Yeast (Auto) (NONE PRSENT) Bedside Glucose 95 mg/dl (70-90) Test 11/13/17 06:02 11/13/17 07:44 White Blood Count 7.03 K/uL (4.8-10.8) Red Blood Count 3.98 M/uL (4.2-5.4) Hemoglobin 12.1 g/dL (12.0-16.0) Hematocrit 37.2 % (37-47) Mean Corpuscular Volume 93.5 fL (80-100) Mean Corpuscular Hemoglobin 30.4 pg (25-34) Mean Corpuscular Hemoglobin Concent 32.5 g/dl (32-36) Platelet Count 200 K/uL (130-400) Mean Platelet Volume 9.5 fL (7.4-10.4) Neutrophils (%) (Auto) 58.0 % Lymphocytes (%) (Auto) 25.7 % Monocytes (%) (Auto) 9.5 % Eosinophils (%) (Auto) 6.4 % Basophils (%) (Auto) 0.1 % Neutrophils # (Auto) 4.07 K/uL (1.4-6.5) Lymphocytes # (Auto) 1.81 K/uL (1.2-3.4) Monocytes # (Auto) 0.67 K/uL (0.11-0.59) Eosinophils # (Auto) 0.45 K/uL (0-0.5) Basophils # (Auto) 0.01 K/uL (0-0.2) RDW Standard Deviation 47.3 fL (36.4-46.3) RDW Coefficient of Variation 13.8 % (11.5-14.5) Immature Granulocyte % (Auto) 0.3 % Immature Granulocyte # (Auto) 0.02 K/uL (0.00-0.02) Sodium Level 141 mmol/L (136-145) Potassium Level 3.8 mmol/L (3.5-5.1) Chloride Level 106 mmol/L (98-107) Carbon Dioxide Level 26 mmol/L (21-32) Anion Gap 9.0 mmol/L (3-11) Blood Urea Nitrogen 29 mg/dl (7-18) Creatinine 0.99 mg/dl (0.60-1.20) Est Creatinine Clear Calc Drug Dose 41.5 ml/min Estimated GFR () 59.4 Estimated GFR (Non- 51.2 BUN/Creatinine Ratio 29.3 (10-20) Random Glucose 123 mg/dl (70-99) Estimated Average Glucose 157 mg/dl Hemoglobin A1c 7.1 % (4.5-5.6) Calcium Level 8.5 mg/dl (8.5-10.1) Magnesium Level 2.2 mg/dl (1.8-2.4) Total Bilirubin 0.4 mg/dl (0.2-1) Aspartate Amino Transf (AST/SGOT) 17 U/L (15-37) Alanine Aminotransferase (ALT/SGPT) 23 U/L (12-78) Alkaline Phosphatase 49 U/L (45-117) Total Protein 6.9 gm/dl (6.4-8.2) Albumin 3.3 gm/dl (3.4-5.0) Globulin 3.6 gm/dl (2.5-4.0) Albumin/Globulin Ratio 0.9 (0.9-2) Bedside Glucose 124 mg/dl (70-90) Micro Results: Date/Time Source Procedure Growth Status 11/12/17 15:15 Blood Blood Culture Pending Received 11/12/17 15:11 Blood Blood Culture - Preliminary Gram Positive Cocci Resulted 11/12/17 15:30 Urine , Clean Catch Urine Culture Pending Received Assessment & Plan Assessment: 87 yo admitted w/ sepsis secondary to UTI present on admission Patient with multiple abx allergies Started on vancomycin/aztreonam No leukocytosis, afebrile, currently 1/2 blood cultures with GPC Acute kideny injury SCr improved from 1.7 to 0.99 today Plan: Patient received a 1500 mg (18.3) loading dose yesterday ~1600. Will start maintenance dose of 1000 mg q18H with improved renal function. Dose may need to be adjusted further Goal trough level estimate: between 15-20 mcg/mL. Trough level ordered for 11/14 @ 2029 Pharmacy will continue to follow and will adjust dose/frequency as necessary. Thank you
[2017-11-13] MEDS: VANCOMYCIN IV 1,000 MG in SODIUM CHLORIDE 0.9% 250ML 250 ML IV SCH (09:07)
[2017-11-13] MEDS: INSULIN ASPART 100 UNITS/ML 3 ML PEN SC SCH ×3 (09:09→21:21)
[2017-11-13] MEDS ORDERED: VANCOMYCIN IV 1,250 MG in SODIUM CHLORIDE 0.9% 250ML 250 ML IV SCH (14:00)
[2017-11-13 15:18] VITALS: BP 115/64; PULSE 63; TEMP 36.2; O2SAT 93
[2017-11-13] MEDS: SODIUM CHLORIDE 0.9% 1000ML 1,000 ML IV SCH (20:07)
[2017-11-13] MEDS: SIMVASTATIN 10 MG TAB PO SCH (21:15)
[2017-11-14] MEDS: VANCOMYCIN IV 1,000 MG in SODIUM CHLORIDE 0.9% 250ML 250 ML IV SCH ×2 (02:32→20:29)
[2017-11-14] MEDS: AZTREONAM IV 1,000 MG in DEXTROSE 5% 100ML 100 ML IV SCH (04:20)
[2017-11-14 06:54] VITALS: BP 151/81; PULSE 64; TEMP 36.3; O2SAT 97
[2017-11-14] MEDS: ESCITALOPRAM OXALATE 10 MG TAB PO SCH (07:33)
[2017-11-14] MEDS: CHLORDIAZEPOXIDE 10 MG CAP PO SCH ×2 (07:33→20:00)
[2017-11-14] MEDS: ARTIFICIAL TEARS OP SOLN OPB SCH ×2 (07:33→20:23)
[2017-11-14] MEDS: CEROVITE ADV FORMULA TAB PO SCH (07:33)
[2017-11-14] MEDS: HEPARIN SOD 5000 UNIT/0.5 ML CARP SQ SCH ×2 (07:34→20:29)
[2017-11-14] MEDS: LACTOBACILLUS ACIDOPHILUS (FLORANEX) TAB PO SCH ×3 (07:34→18:08)
[2017-11-14] MEDS: DIPYRIDAMOLE/ASPIRIN CAP PO SCH ×2 (07:34→20:00)
[2017-11-14 07:47] LABS: CREATININE 0.91 mg/dl (0.60-1.20)
[2017-11-14] MEDS: INSULIN ASPART 100 UNITS/ML 3 ML PEN SC SCH ×4 (08:26→20:24)
--- NOTE | 2017-11-14 14:23 | Hospitalist Progress Note ---
Hospitalist Progress Note Date of Service Nov 14, 2017. (Denise Shepherd PA-C) Subjective Pt evaluation today including: conversation w/ patient, conversation w/ family , physical exam, chart review, lab review, review of studies Pain: None PO Intake: Good Voiding: no voiding problems The patient was seen and examined this morning. Patient reports feeling well. She was just up walking with PT/OT and ambulated about the bhatia with a walker without difficulty. Her daughter is present at bedside, Lorena. She reports that the patient is doing much better today compared to yesterday in regards to her confusion, today she is about at her baseline. Patient denies any issues with urination, fevers or chills. Discussion was held regarding awaiting urine culture sensitivities for antibiotic therapy as an outpatient. We will repeat blood cultures x2 with initial GPC+ on 08/22 blood cultures on 11/12 today. Additional Comments: Constitutional: No fever, sweats or chills Eyes: No diplopia, no worsening or blurred vision ENT: normal hearing, no trouble swallowing Respiratory: No cough, sputum, dyspnea at rest or on exertion Cardiovascular: No chest pain, tightness or palpitations Abdomen: No pain, nausea, vomiting, diarrhea or constipation Musculoskeletal: No joint pain, calf pain, swelling Neurologic: No weakness, numbness/tingling, or balance problems Psychiatric: No anxiety or depression Skin: No rash or itch (Denise Shepherd PA-C) Objective Vital Signs Date Time Temp Pulse Resp B/P (MAP) Pulse Ox O2 Delivery O2 Flow Rate FiO2 11/14/17 08:00 Room Air 11/14/17 06:54 36.3 64 18 151/81 (104) 97 Room Air 11/14/17 00:01 Room Air 11/13/17 20:01 Room Air 11/13/17 16:00 Room Air 11/13/17 15:18 36.2 63 16 115/64 (81) 93 Room Air (Denise Shepherd PA-C) Physical Exam Notes: General: awake, alert, no apparent distress Head: Normocephalic, atraumatic ENT: PERRL, EOMI, no pharyngeal exudate, mucous membranes moist Chest: Clear to auscultation, on room air, no adventitious breath sounds Cardiac: Regular rate and rhythm, no murmur, no JVD, normal peripheral pulses, good capillary refill Abdominal: NABS x 4 quadrants, soft, nontender to palpation, no rebound, guarding or tenderness Extremities: Normal inspection, no peripheral edema or erythema, calfs nontender to palpation Psych: Normal mood and affect Neuro: Awake, alert, oriented to self and place. Unable to answer date or year. 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 Metabolic encephalopathy secondary to Sepsis present on admission secondary to UTI present on admission - IV fluid hydration initially - now off - Urine culture growing staph aureus-awaiting sensitivity, initial blood culture drawn growing GPC in 1/2 cultures. We will repeat blood cultures today 2 sites to show resolvement. - Start patient on Vanco/aztreonam (started on 11/12) - stop aztreonam today. Continue vanc - Lactobacillus to prevent C. difficile Acute kidney injury secondary UTI - Cr improved from 1.7 to 0.99 - Continue to encourage oral hydration - off IVFs - Ultrasound renal rule out perirenal abscess, obstructive uropathy Dehydration/decreased oral intake 3 days plus lisinopril/hydrochlorothiazide/ triamterene Hypertension - Continue home medications except lisinopril, hydrochlorothiazide, triamterene - will resume these since ANKUR resolved. - BP remains in the 140s to low 150s systolically - Continue atenolol, will add hydralazine IV as needed systolic blood pressure more than 170 Diabetes mellitus and oral hypoglycemic - ISS with accuchecks History of CVA in 2001 currently on Aggrenox with residual right-sided weakness - PT/OT consults - pt encouraged to call nursing for assistance - from [facility] -- will need skilled side of facility upon return Bilateral calf muscle pain - Ultrasound lower extremity rule out DVT is negative. Osteoarthritis - Pt with c/o knee pain - will resume her [employer] tylenol bid. DVT ppx: Heparin subcu [facility]position: [facility], pt/ot [facility] pimentel to assist with dc planning - possible dc tomorrow (Denise Shepherd PA-C) Supervising Note Dr. South I performed a history and physical examination on the patient. I reviewed above note and agree with it. I discussed plan with APC and patient. During my face to face encounter with the patient, I answered all of the patient's questions. Patient mentally appears much more improved today. Will reassess in AM. If she continues to improve, will likely discharge in AM. (Isaías South M.D.)
[2017-11-14 15:37] VITALS: BP 117/71; PULSE 57; TEMP 36.4; O2SAT 94
[2017-11-14] MEDS: SODIUM CHLORIDE 0.9% 1000ML 1,000 ML IV SCH (18:07)
[2017-11-14] MEDS: POTASSIUM CHLORIDE 10 MEQ TABCR PO SCH (20:23)
[2017-11-14] MEDS: SIMVASTATIN 10 MG TAB PO SCH (20:23)
[2017-11-14] MEDS: ACETAMINOPHEN 325 MG TAB PO SCH (20:23)
[2017-11-14] MEDS ORDERED: VANCOMYCIN TROUGH ONE (20:30)
[2017-11-14] MEDS ORDERED: ACETAMINOPHEN 325 MG TAB PO SCH (21:00)
[2017-11-15] MEDS: ARTIFICIAL TEARS OP SOLN OPB SCH ×2 (07:27→22:47)
[2017-11-15] MEDS: TRIAMTERENE/HCTZ 37.5/25MG CAP PO SCH (07:28)
[2017-11-15] MEDS: LISINOPRIL 2.5 MG TAB PO SCH (07:28)
[2017-11-15] MEDS: POTASSIUM CHLORIDE 10 MEQ TABCR PO SCH ×2 (07:28→22:46)
[2017-11-15] MEDS: CHLORDIAZEPOXIDE 10 MG CAP PO SCH ×2 (07:28→22:47)
[2017-11-15] MEDS: CEROVITE ADV FORMULA TAB PO SCH (07:28)
[2017-11-15] MEDS: DIPYRIDAMOLE/ASPIRIN CAP PO SCH ×2 (07:29→22:46)
[2017-11-15] MEDS: ESCITALOPRAM OXALATE 10 MG TAB PO SCH (07:29)
[2017-11-15] MEDS: LACTOBACILLUS ACIDOPHILUS (FLORANEX) TAB PO SCH ×3 (07:29→22:46)
[2017-11-15] MEDS: ACETAMINOPHEN 325 MG TAB PO SCH ×2 (07:30→22:47)
[2017-11-15 07:43] VITALS: BP 159/79; PULSE 58; TEMP 36.9; O2SAT 95
[2017-11-15 08:00] LABS: CREATININE 0.83 mg/dl (0.60-1.20)
[2017-11-15] MEDS: INSULIN ASPART 100 UNITS/ML 3 ML PEN SC SCH ×4 (08:56→22:48)
[2017-11-15] MEDS: HEPARIN SOD 5000 UNIT/0.5 ML CARP SQ SCH ×2 (08:56→22:47)
--- NOTE | 2017-11-15 10:20 | Discharge Instructions ---
Discharge Instructions Date of Service Nov 15, 2017. Admission Reason for Admission: Urinary Tract Infection Discharge Discharge Diagnosis / Problem: UTI Discharge Goals Goal(s): Decrease discomfort, Improve function, Increase independence, Improve disease control Activity Recommendations Activity Level: Up Ad [place], Assistance Required Therapies: Physical Therapy, Occupational Therapy Lifting Limitations: no more than 25 pounds, gradually increase as tolerated Exercise/Sports Limitations: none Shower/Bathe: no limitations (with assistance) . Additional Information Patient informed of condition: Yes Advance Directives: No DNR: No Level of Care: Skilled Communicable Disease: No Prognosis: Stable Instructions / Follow-Up Instructions / Follow-Up You were admitted to [facility] with confusion and diagnosed with Urinary tract infection and metabolic encephalopathy due to the infection. During your stay here you were treated with intravenous antibiotics, supportive care, intravenous fluids, and evaluated by physical and occupational therapy. Your symptoms improved and you were stable for discharge. Medications: Continue taking your medications as prescribed. Continue doxycycline 100 mg twice daily starting on 11/17 x 2 days to complete a 7 day course. Appointments: Follow up with PCP within 1 week. Current Hospital Diet Patient's current hospital diet: Diabetes Type 2 Diet, AHA Diet (Heart Healthy) Discharge Diet Recommended Diet: AHA Diet (Heart Healthy) Pending Studies Studies pending at discharge: no Laboratory Results Hemoglobin A1c Test 11/13/17 06:02 Range/Units Estimated Average Glucose 157 mg/dl Hemoglobin A1c 7.1 H 4.5-5.6 % Medical Emergencies . Who to Call and When: Medical Emergencies: If at any time you feel your situation is an emergency, please call 911 immediately. . Non-Emergent Contact Non-Emergency issues call your: Primary Care Provider Call Non-Emergent contact if: you have a fever, temperature is above 100.5, your pain is not controlled, your pain is worsening, your pain is unusual for you, your pain is concerning you, you have any medication questions other concerns with your health. Call 911 or go directly to the Emergency Department if you experience any of the following: Chest pain, chest tightness, shortness of breath, abdominal pain , lightheadedness, dizziness, gastrointestinal bleeding, or have any other concerns regarding your health. . Past History Medical & Surgical History: (1) Metabolic encephalopathy (2) Urinary tract infection . "Provider Documentation" section prepared by Starr G. Filipowicz. . Core Measure Problem Core Measures: None [place] Drug Monitoring Program Search Results: no issues identified
--- NOTE | 2017-11-15 13:08 | Pharmacy Progress Note ---
Pharmacy Abx Dose Progress Nt Date of Service Nov 15, 2017. Pharmacy Dosing Scope The patient is currently receiving the following antimicrobial agents per Pharmacy consult: Vancomycin 1000 mg IV every 18 hours Objective Height (Feet): 5 Height (Inches): 4.00 Weight (Kilograms): 82.000 Vital Signs (Past 12Hrs) Vital Signs Past 12 Hours Date Time Temp Pulse Resp B/P (MAP) Pulse Ox O2 Delivery O2 Flow Rate FiO2 11/15/17 08:00 Room Air 11/15/17 07:43 36.9 58 18 159/79 (105) 95 Room Air Micro Results Date/Time Source Procedure Growth Status 11/14/17 20:11 Blood Blood Culture Pending Received 11/14/17 19:57 Blood Blood Culture Pending Received 11/12/17 15:15 Blood Blood Culture - Preliminary NO GROWTH TO DATE. Resulted 11/12/17 15:11 Blood Blood Culture - Preliminary Alpha Strep Not S.pne/Enteroco Gamma Strep Not Enterococcus Resulted 11/12/17 15:30 Urine , Clean Catch Urine Culture - Preliminary Staphylococcus Aureus Resulted Assessment & Plan Assessment 87 year old female receiving Vancomycin IV for treatment of S. aureus UTI with 1/2 BC positive for alpha strep and gamma strep, not enterococcus: * Day # 4 of antimicrobial therapy * repeat BC pending and S.aureus sensitivities pending * aztreonam d/c'ed on 11/14 Plan Vancomycin IV * Trough level of 16.2 mcg/mL is therapeutic * Will convert to a q24 hour dosing interval incase patient remains on vancomycin at time of discharge. * Change to 1250 mg (15 mg/kg) IV every 24 hours. * Goal trough level for UTI: 15 mcg/mL (would aim for higher trough of 15-20 mcg /mL if bacteremia is confirmed) * Trough level should be ordered for 11/18 (30 min prior to dose) if vancomycin therapy is continued Pharmacy will continue to follow and will adjust dose/frequency as necessary. Thank you.
[2017-11-15] MEDS ORDERED: VANCOMYCIN IV 1,250 MG in SODIUM CHLORIDE 0.9% 250ML 250 ML IV SCH (14:00)
[2017-11-15] MEDS: SODIUM CHLORIDE 0.9% 1000ML 1,000 ML IV SCH (14:34)
--- NOTE | 2017-11-15 14:38 | Hospitalist Progress Note ---
Hospitalist Progress Note Date of Service Nov 15, 2017. (Denise Shepherd PA-C) Subjective Pt evaluation today including: conversation w/ patient, physical exam, chart review, lab review, review of studies Pain: None PO Intake: Good Voiding: no voiding problems The patient was seen and examined this morning. Pt reports doing well today. She has no acute urinary complaints. Patient has been up and ambulating and working with PT/OT and doing well. She denies any issues with oral intake, abdominal pain no chest pain, flutter, palpitation or shortness of breath. Additional Comments: Constitutional: No fever, sweats or chills Eyes: No diplopia, no worsening or blurred vision ENT: normal hearing, no trouble swallowing Respiratory: No cough, sputum, dyspnea at rest or on exertion Cardiovascular: No chest pain, tightness or palpitations Abdomen: No pain, nausea, vomiting, diarrhea or constipation Musculoskeletal: No joint pain, calf pain, swelling Neurologic: No weakness, numbness/tingling, or balance problems Psychiatric: No anxiety or depression Skin: No rash or itch (Denise Shepherd PA-C) Objective Vital Signs Date Time Temp Pulse Resp B/P (MAP) Pulse Ox O2 Delivery O2 Flow Rate FiO2 11/15/17 08:00 Room Air 11/15/17 07:43 36.9 58 18 159/79 (105) 95 Room Air 11/15/17 00:30 Room Air 11/14/17 16:00 Room Air 11/14/17 15:37 36.4 57 18 117/71 (86) 94 Room Air (Denise Shepherd PA-C) Physical Exam Notes: General: awake, alert, no apparent distress Head: Normocephalic, atraumatic ENT: PERRL, EOMI, no pharyngeal exudate, mucous membranes moist Chest: Clear to auscultation, on room air, no adventitious breath sounds Cardiac: Regular rate and rhythm, no murmur, no JVD, normal peripheral pulses, good capillary refill Abdominal: NABS x 4 quadrants, soft, nontender to palpation, no rebound, guarding or tenderness Extremities: Normal inspection, no peripheral edema or erythema, calfs nontender to palpation Psych: Normal mood and affect Neuro: Awake, alert, oriented to self, place, month and date, unable to answer the year. Strength intact bilaterally and related 5/5, no motor deficits, speech is clear, no peripheral sensory deficits (Denise Shepherd PA-C) Laboratory Results Last 24 Hours Test 11/14/17 16:30 11/14/17 19:57 11/14/17 20:03 11/15/17 07:11 Bedside Glucose 160 mg/dl 148 mg/dl Vancomycin Level Trough 16.2 mcg/ml Creatinine 0.83 mg/dl Est Creatinine Clear Calc Drug Dose 49.5 ml/min Estimated GFR () 73.5 Estimated GFR (Non- 63.4 Test 11/15/17 08:13 11/15/17 11:40 Bedside Glucose 123 mg/dl 210 mg/dl (Denise Shepherd PA-C) Assessment and Plan 87 yo F with history of hypertension, diabetes mellitus on oral hypoglycemic, 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 Metabolic encephalopathy secondary to Sepsis present on admission secondary to UTI - IV fluid hydration initially - now off - Urine culture growing staph aureus-awaiting sensitivity - called micro - no results until tomorrow. - initial blood culture drawn growing GPC in 1/2 cultures. Repeat BCx 2 sites to show resolvement drawn 11/14. - Start patient on Vanco/aztreonam (started on 11/12) - stop aztreonam 11/14. Continue vanc - Lactobacillus to prevent C. difficile Acute kidney injury secondary UTI - Cr improved from 1.7 to 0.83 - Continue to encourage oral hydration - off IVFs - Ultrasound renal rule out perirenal abscess, obstructive uropathy Dehydration/decreased oral intake 3 days plus lisinopril/hydrochlorothiazide/ triamterene Hypertension - Continued on atenolol - Continue home medications since ANKUR resolved on 11/14:lisinopril, hydrochlorothiazide, triamterene - BP stable - will add hydralazine IV as needed systolic blood pressure more than 170 Diabetes mellitus and oral hypoglycemic - ISS with accuchecks History of CVA in 2001 currently on Aggrenox with residual right-sided weakness - PT/OT consults - pt encouraged to call nursing for assistance - from [facility] -- will need skilled side of facility upon return Bilateral calf muscle pain - Ultrasound lower extremity rule out DVT is negative. Osteoarthritis - Pt with c/o knee pain - will resume her [employer] tylenol bid. DVT ppx: Heparin subcu Disposition: [facility], pt/ot [facility] piment[facility] to assist with dc planning - possible dc tomorrow pending Ucx sensitivity (Denise Shepherd, DOROTHY) Supervising Note Dr. South I performed a history and physical examination on the patient. I reviewed above note and agree with it. I discussed plan with APC and patient. During my face to face encounter with the patient, I answered all of the patient's questions. Patient has metabolic encephalopathy. Patient currently on vanco IV. Awaiting sensitivities. Once aware of this will try to change to PO. Patient may not need a long course of oral antibiotics however, given she has been treated with IV vanco (Isaías South M.D.)
[2017-11-15 16:35] VITALS: BP 130/72; PULSE 67; TEMP 36.7; O2SAT 92
[2017-11-15] MEDS: SIMVASTATIN 10 MG TAB PO SCH (22:47)
[2017-11-15 23:12] VITALS: BP 137/74; PULSE 71; TEMP 36.3; O2SAT 97
[2017-11-16 07:14] VITALS: BP 135/82; PULSE 64; TEMP 36.7; O2SAT 91
[2017-11-16] MEDS: ARTIFICIAL TEARS OP SOLN OPB SCH (07:17)
[2017-11-16 07:22] LABS: CREATININE 0.8 mg/dl (0.60-1.20)
[2017-11-16] MEDS: ESCITALOPRAM OXALATE 10 MG TAB PO SCH (08:11)
[2017-11-16] MEDS: LISINOPRIL 2.5 MG TAB PO SCH (08:11)
[2017-11-16] MEDS: TRIAMTERENE/HCTZ 37.5/25MG CAP PO SCH (08:11)
[2017-11-16] MEDS: CEROVITE ADV FORMULA TAB PO SCH (08:11)
[2017-11-16] MEDS: LACTOBACILLUS ACIDOPHILUS (FLORANEX) TAB PO SCH ×3 (08:11→17:52)
[2017-11-16] MEDS: POTASSIUM CHLORIDE 10 MEQ TABCR PO SCH (08:12)
[2017-11-16] MEDS: DIPYRIDAMOLE/ASPIRIN CAP PO SCH (08:12)
[2017-11-16] MEDS: HEPARIN SOD 5000 UNIT/0.5 ML CARP SQ SCH (08:16)
[2017-11-16] MEDS: INSULIN ASPART 100 UNITS/ML 3 ML PEN SC SCH ×3 (08:19→17:52)
[2017-11-16] MEDS: CHLORDIAZEPOXIDE 10 MG CAP PO SCH (08:19)
[2017-11-16] MEDS: ACETAMINOPHEN 325 MG TAB PO SCH (08:28)
[2017-11-16] MEDS ORDERED: DAPTOmycin IV 350 MG in SYRINGE 0 ML IV SCH (09:15)
[2017-11-16] MEDS ORDERED: VANCOMYCIN CONSULT ACTIVE PRN (09:45)
[2017-11-16] MEDS ORDERED: VANC1INJ94 IV ×2 (10:17→10:24)
[2017-11-16] MEDS: SODIUM CHLORIDE 0.9% 1000ML 1,000 ML IV SCH (10:30)
[2017-11-16] MEDS ORDERED: VANCOMYCIN IV 1,250 MG in SODIUM CHLORIDE 0.9% 250ML 250 ML IV SCH (11:00)
[2017-11-16] MEDS ORDERED: DOXY-300 PO (12:55)
--- NOTE | 2017-11-16 12:58 | Discharge Summary ---
Discharge Summary Date of Service Nov 16, 2017. Discharge Summary Admission Date: Nov 12, 2017 at 17:02 Discharge Date: Nov 15, 2017 Discharge Disposition: [facility] facility Principal Diagnosis: UTI sepsis Problems/Secondary Diagnoses: Medical Problems: (1) Breast cancer (2) DM II (diabetes mellitus, type II), controlled (3) History of CVA (cerebrovascular accident) (4) HTN (hypertension) (5) Metabolic encephalopathy (6) Osteoarthritis (7) Shingles Surgical Problems: (1) History of cataract surgery Consultations: None Medication Reconciliation New Medications: Doxycycline (Monohydrate) (Doxycycline) 100 Mg Cap 100 MG PO BID for 2 Days, #4 DOSE Continued Medications: Acetaminophen (Tylenol) 325 Mg Tab 650 MG PO q4-6hours PRN for Pain, #30 TAB Atenolol (Tenormin) 50 Mg Tab 50 MG PO QAM for 90 Days Chlordiazepoxide (Librium) 10 Mg Cap 10 MG PO BID for 90 Days Cranberry (Vaccinium Macrocarp (Cranberry) 250 Mg Cap 250 MG PO BID for 90 Days Diphenhydramine HCl (Diphenhydramine HCl) 25 Mg Cap 1 CAP PO Q4 PRN for Itching Dipyridamole/Aspirin (Aggrenox 25-200 mg) 1 Cap Cap 1 CAP PO BID for 90 Days, CAP Escitalopram Oxalate (Escitalopram Oxalate) 10 Mg Tab 10 MG PO QAM for 90 Days, TAB Glyburide (Diabeta) 2.5 Mg Tab 1 TAB PO DAILY for 30 Days, #30 TAB 5 Refills Lisinopril (Lisinopril) 2.5 Mg Tab 2.5 MG PO QAM for 90 Days Methenamine Hippurate (Methenamine Hippurate) 1 Gm Tab 1 GM PO Q12 for 90 Days Multivitamins/Minerals (Certavite/Antioxidants) 1 Tab Tab 1 TAB PO QAM for 90 Days, TAB Polyethylene Glycol-Propylene (Systane) 1 [place] 1 DROP OPB HS, #1 BTL Polyvinyl Alcohol-Povidone (Op (Refresh) 1 [place] 1 DROP OPB DAILY, #1 BTL Potassium Chloride (Klor-Con Sprinkle) 10 Meq Cap 1 CAP PO BID Simvastatin (Zocor) 10 Mg Tab 10 MG PO HS for 90 Days Triamterene/Hctz (Dyazide 37.5MG/25MG) Cap 1 TABLET PO QAM for 90 Days Discharge Exam The patient was seen and examined this morning. Pt reports doing well today. She has no acute complaints. Questions regarding antibiotics and urine cx sensitivity were addressed at bedside. ROS: Constitutional: No fever, sweats or chills Eyes: No diplopia, no worsening or blurred vision ENT: normal hearing, no trouble swallowing Respiratory: No cough, sputum, dyspnea at rest or on exertion Cardiovascular: No chest pain, tightness or palpitations Abdomen: No pain, nausea, vomiting, diarrhea or constipation Musculoskeletal: No joint pain, calf pain, swelling Neurologic: No weakness, numbness/tingling, or balance problems Psychiatric: No anxiety or depression Skin: No rash or itch PE: General: awake, alert, no apparent distress Head: Normocephalic, atraumatic ENT: PERRL, EOMI, no pharyngeal exudate, mucous membranes moist Chest: Clear to auscultation, on room air, no adventitious breath sounds Cardiac: Regular rate and rhythm, no murmur, no JVD, normal peripheral pulses, good capillary refill Abdominal: NABS x 4 quadrants, soft, nontender to palpation, no rebound, guarding or tenderness Extremities: Normal inspection, no peripheral edema or erythema, calfs nontender to palpation Psych: Normal mood and affect Neuro: Awake, alert, oriented to self, place, month and date, unable to answer the year. 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 Metabolic encephalopathy secondary to Sepsis present on admission secondary to UTI - IV fluid hydration initially - now off - Urine culture growing staph aureus- will continue on doxycycline x 2 days at time of dc to complete a 7 day course. - initial blood culture drawn growing GPC in 1/2 cultures. likely contaminate. Repeat BCx 2 sites show resolvement drawn 11/14. - Start patient on Vanco/aztreonam (started on 11/12) - stop aztreonam 11/14. Received 5 days of IV vanc total. - Lactobacillus to prevent C. difficile Acute kidney injury secondary UTI - Cr improved from 1.7 to 0.80 - Continue to encourage oral hydration - off IVFs after 3 days. Pt tolerating good oral intake prior to discharge. - Ultrasound renal rule out perirenal abscess, obstructive uropathy Dehydration/decreased oral intake 3 days plus lisinopril/hydrochlorothiazide/ triamterene Hypertension - Continued on atenolol - Continue home medications since ANKUR resolved on 11/14: lisinopril, hydrochlorothiazide, triamterene - BP stable - will add hydralazine IV as needed systolic blood pressure more than 170 - did not require during admission. Diabetes mellitus and oral hypoglycemic - ISS with accuchecks History of CVA in 2001 currently on Aggrenox with residual right-sided weakness - PT/OT consults - pt encouraged to call nursing for assistance - from [place] [facility] -- will need skilled side of facility upon return Bilateral calf muscle pain - Ultrasound lower extremity rule out DVT is negative. Osteoarthritis - Pt with c/o knee pain - will resume her [employer] tylenol bid. DVT ppx: Heparin subcu Disposition: From [place], pt/ot FELIX pimentel to assist with dc planning - dc to [facility] today Total Time Spent: Greater than 30 minutes This includes examination of the patient, discharge planning, medication reconciliation, and communication with other providers. Discharge Instructions Please refer to the electronic Patient Visit Report (Discharge Instructions) for additional information. Follow-Up Follow up with your Primary Care Provider within 1 week. Additional Copies To Zi Ramirez M.D.
[2017-11-16 13:58] VITALS: BP 135/82; PULSE 64; TEMP 36.7; O2SAT 91
[2017-11-16 16:26] VITALS: BP 101/61; PULSE 58; TEMP 36.5; O2SAT 93
== END 2017-11-16 18:15 | DRG 871 ==
LOC: C.EDB 14:24 → C.MS4W 17:02 → ENRESERV 17:11
PROVIDERS: ADMIT Internal Medicine; ATTEND Internal Medicine Sports Medicine
DX: A41.9 Sepsis, unspecified organism (principal); G93.41 Metabolic encephalopathy; N39.0 Urinary tract infection, site not specified; N17.9 Acute kidney failure, unspecified; E86.0 Dehydration; M19.90 Unspecified osteoarthritis, unspecified site; C50.919 Malignant neoplasm of unspecified site of unspecified female breast; I10 Essential (primary) hypertension; E11.9 Type 2 diabetes mellitus without complications; B02.9 Zoster without complications; Z87.891 Personal history of nicotine dependence; Z98.49 Cataract extraction status, unspecified eye; Z88.0 Allergy status to penicillin; Z88.2 Allergy status to sulfonamides; Z91.018 Allergy to other foods; Z88.1 Allergy status to other antibiotic agents; Z79.84 Long term (current) use of oral hypoglycemic drugs; Z86.73 Personal history of transient ischemic attack (TIA), and cerebral infarction without residual deficits

== ENCOUNTER 2017-12-18 18:37 | Observation (INO) | payer BC, OTHER ==
[~2017-12-18] VITALS: Ht 162.6 cm; Wt 83.9 kg
[~2017-12-18 18:37] MED LIST changes: +DIPH25CA48 PO; +DOXY-300 PO; +GLYB2.5T7 PO; +POTA1CAP53 PO
[2017-12-18] MEDS ORDERED: ACETAMINOPHEN 500 MG TAB PO STA (18:48)
--- NOTE | 2017-12-18 18:58 | EMERGENCY ROOM VISIT NOTE ---
History Report prepared by Ijeoma: Siria Agudelo Under the Supervision of: Dr. Jeramie Padilla D.O. First contact with patient: 18:37 Chief Complaint: FALL Stated Complaint: FALL, LEFT KNEE, LOWER LEG & ANKLE PAIN History of Present Illness The patient is a 87 year old female who presents to the Emergency Room with complaints of persistent trauma secondary to a fall that occurred prior to arrival. She reports that she was sitting at the super table, when fell of her chair and injured most of the left side of her body. The patient denies losing consciousness or having similar episodes recently. She complains of left sided knee pain, leg pain, and hand pain. The patient denies having any neck pain or pain in her right arm. She reports that she had a stroke in 2001, noting that she has been experiencing right leg weakness since then. Source of History: patient Onset: prior to arrival Position: hand (left), leg (left), knee (left) Quality: other (trauma secondary to pain) Timing: other (persistent) Associated Symptoms: No LOC, No neck pain Note: Associated symptoms include: left hand pain, left knee pain, and left leg pain. Patient denies pain in her right arm. Review of Systems See HPI for pertinent positives & negatives. A total of 10 systems reviewed and were otherwise negative. Past Medical & Surgical Medical Problems: (1) Breast cancer (2) DM II (diabetes mellitus, type II), controlled (3) History of CVA (cerebrovascular accident) (4) HTN (hypertension) (5) Metabolic encephalopathy (6) Osteoarthritis (7) Shingles Surgical Problems: (1) History of cataract surgery Family History Diabetes mellitus FH: heart disease FHx: cancer Hypertension Social History Smoking Status: Former Smoker Alcohol Use: none Drug Use: none Housing Status: lives alone Occupation Status: retired Current/Historical Medications Scheduled Atenolol (Tenormin), 50 MG PO QAM Chlordiazepoxide (Librium), 10 MG PO BID Cranberry (Vaccinium Macrocarp (Cranberry), 250 MG PO BID Dipyridamole/Aspirin (Aggrenox 25-200 mg), 1 CAP PO BID Escitalopram (Lexapro), 10 MG PO DAILY Glyburide (Diabeta), 2.5 MG PO DAILY Levofloxacin (Levaquin), 250 MG PO QPM Methenamine Hippurate (Methenamine Hippurate), 1 GM PO BID Multivitamins/Minerals (Mvi With Minerals), 1 TAB PO DAILY Polyethylene Glycol-Propylene (Systane), 1 DROPS OPB HS Polyvinyl Alcohol-Povidone (Op (Refresh), 1 DROP OPB QAM Potassium Chloride (Klor-Con Sprinkle), 10 MEQ PO BID Simvastatin (Zocor), 10 MG PO QPM Triamterene/Hctz (Triamterene/Hctz 37.5-25MG), 1 TAB PO QAM Scheduled PRN Acetaminophen Tab (Tylenol), 650 MG PO Q6H PRN for Pain or Fever Diphenhydramine HCl (Diphenhydramine HCl), 25 MG PO Q4 PRN for Itching Ondansetron Hcl (Zofran), 4 MG PO Q6H PRN for Nausea Allergies Coded Allergies: Cephalexin (Verified Allergy, Intermediate, rash, hives, 11/12/17) Ciprofloxacin (Verified Allergy, Intermediate, hives, 11/12/17) Nitrofurantoin (Verified Allergy, Intermediate, hives, 11/12/17) Penicillins (Verified Allergy, Intermediate, hives, 11/12/17) [place] (Verified Allergy, Intermediate, rash, 11/12/17) Sulfa Antibiotics (Verified Allergy, Intermediate, HIVES, 11/12/17) Physical Exam Vital Signs Date Time Temp Pulse Resp B/P (MAP) Pulse Ox O2 Delivery O2 Flow Rate FiO2 12/18/17 21:33 68 18 103/59 92 Room Air 12/18/17 20:12 69 18 156/88 97 Room Air 12/18/17 18:37 36.4 67 18 132/74 94 Room Air Physical Exam GENERAL: Patient is awake, alert, and in no acute distress. Patient is non- anxious appearing. EYES: The conjunctivae are clear. The pupils are round and reactive. EARS, NOSE, MOUTH AND THROAT: The nose is without any evidence of any deformity. Mucous membranes are moist tongue is midline NECK: The neck is nontender and supple. RESPIRATORY: Normal respiratory effort is noted there is no evidence of wheezing rhonchi or rales CARDIOVASCULAR: Regular rate and rhythm noted there no murmurs rubs or gallops normal S1 normal S2 GASTROINTESTINAL: The abdomen is soft. Bowel sounds are present in all quadrants. Abdomen is nontender PELVIS: The Pelvis is stable. No tenderness to palpation is noted. BACK: Low lumbar tenderness to palpation, but range of motion appeared intact. No midline tenderness or or step-off noted range of motion in flexion extension as well as rotation no signs of muscle spasm noted MUSCULOSKELETAL/EXTREMITIES: Ecchymosis and tenderness over dorsal of left hand. Ecchymosis and tenderness over left knee, no AP instability noted. Tenderness over lateral left ankle, but no deformity was appreciated. There is no evidence of gross deformity full range of motion is noted in the hips and shoulders SKIN: There is no obvious evidence of any rash. There are no petechiae, pallor or cyanosis noted. NEUROLOGIC: Patient is awake alert and oriented x3 Medical Decision & Procedures ER Provider Diagnostic Interpretation: Radiology results as stated below per my review and radiologist interpretation: PELVIS 1 OR 2 VIEW ROUTINE CLINICAL HISTORY: fall trauma. Pain. COMPARISON: None. DISCUSSION: Generalized degenerative change of the hips and bony pelvis. Degenerative change of the sacroiliac joints. No well-defined acute bony abnormality. No evidence for acetabular protrusion. There is no evidence for soft tissue swelling. IMPRESSION: Generalized degenerative change. No acute bony abnormality. The above report was generated using voice recognition software. It may contain grammatical, syntax or spelling errors. Electronically signed by: Jose Callahan M.D. 12/18/2017 8:11 PM Dictated Date/Time: 12/18/2017 8:10 PM L-SPINE MIN 4 VIEWS ROUTINE HISTORY: Trauma. Pain. fall COMPARISON: 11/12/2017 FINDINGS: There is no fracture. No subluxation. Moderate degenerative disc change throughout. IMPRESSION: Degenerative change. No acute process. The above report was generated using voice recognition software. It may contain grammatical, syntax or spelling errors. Electronically signed by: Jose Callahan M.D. 12/18/2017 8:13 PM Dictated Date/Time: 12/18/2017 8:12 PM L KNEE 1 OR 2 VIEWS ROUTINE CLINICAL HISTORY: fall trauma. Pain. COMPARISON: None. DISCUSSION: Generalized degenerative change of all major joint compartments. No significant joint effusion. Soft tissue vascular calcifications are present. No well-defined fracture. IMPRESSION: Generalized degenerative change. No acute bony abnormality. The above report was generated using voice recognition software. It may contain grammatical, syntax or spelling errors. Electronically signed by: Jose Callahan M.D. 12/18/2017 8:15 PM Dictated Date/Time: 12/18/2017 8:14 PM L HAND MIN 3 VIEWS ROUTINE CLINICAL HISTORY: fall trauma. Pain. COMPARISON: None. DISCUSSION: Generalized degenerative change of all major osseous structures. Severe degenerative change first carpometacarpal joint. Significant degenerative changes of the intercarpal as well as carpal metacarpal joints. No evidence for fracture or IMPRESSION: Considerable degenerative change. No acute bony abnormality. The above report was generated using voice recognition software. It may contain grammatical, syntax or spelling errors. Electronically signed by: Jose Callahan M.D. 12/18/2017 8:16 PM Dictated Date/Time: 12/18/2017 8:15 PM L ANKLE MIN 3 VIEWS ROUTINE CLINICAL HISTORY: fall trauma COMPARISON: None. DISCUSSION: Nondisplaced cortical fracture distal fibula. Alignment is anatomic. There is a small heel spur. There is mild degenerative change throughout. Mild soft tissue edema. IMPRESSION: Nondisplaced transverse cortical fracture distal fibula. The above report was generated using voice recognition software. It may contain grammatical, syntax or spelling errors. Electronically signed by: Jose Callahan M.D. 12/18/2017 8:14 PM Dictated Date/Time: 12/18/2017 8:13 PM HEAD WITHOUT CONTRAST (CT) CT DOSE: 810.83 mGy.cm HISTORY: Trauma. Mental status change. confusion TECHNIQUE: Multiaxial CT images of the head were performed without the use of intravenous contrast. A dose lowering technique was utilized adhering to the principles of ALARA. Comparison: 07/24/2016 Findings: The paranasal sinuses and mastoid air cells are clear. The calvarium and skull base are intact. The ventricles and sulci are within normal limits. There is no mass, hematoma, midline shift, or acute infarct. There are findings of considerable chronic small vessel change in the periventricular deep right matter regions. Several old periventricular infarct are also noted. Scattered areas of encephalomalacia throughout both cerebral hemispheres are stable. There is no evidence for new or interval process. Impression: 1. No acute intracranial abnormality. 2. Chronic findings as discussed above unchanged from the prior study. The above report was generated using voice recognition software. It may contain grammatical, syntax or spelling errors. Electronically signed by: Jose Callahan M.D. 12/18/2017 8:21 PM Dictated Date/Time: 12/18/2017 8:20 PM Medications Administered Medications (Trade) Dose Ordered Sig/[place] Route Start Time Stop Time Status Last Admin Dose Admin Acetaminophen (Tylenol Tab) 1,000 mg NOW STAT PO 12/18/17 18:48 12/18/17 18:50 DC 12/18/17 19:03 1,000 MG ED Course 1837: The patient was evaluated in room B11. A complete history and physical examination were performed. 1847: Ordered Tylenol Tab 1000mg PO. 1937: I reevaluated the patient, who was resting with her granddaughter at bedside. Her granddaughter states that the patient has been more confused than usual and would like to discuss assisted living. Will order CT of her head. 2014: I discussed the patient's [facility] The patient will be evaluated for further management. 2019: I reevaluated the patient, who was resting. Updated her and her family on test findings and the treatment plan. They verbalized complete agreement and understanding. Medical Decision Prior records/ancillary studies reviewed. Triage Nursing notes reviewed. Additional history obtained from transfer records. The patient's history was concerning for traumatic injury Differential diagnosis: Etiologies such as fracture, dislocation, intra-abdominal, pneumothorax, intrathoracic , intracranial, neurologic, as well as other traumatic pathologies were entertained. The patient is an 87-year-old female who presented [place] the emergency department [place] [facility]. The patient had a fall [facility] [place] [facility]. The patient's family member state that she has been having decline in her living situation. They are very concerned about her overall safety. The patient was admitted recently for similar complaints and was noted to have no acute traumatic injury at that time. At this time she does appear to have some degree of injury to her left lower extremity as well as a distal fibular fracture. The patient was evaluated by the emergency department manager case. She will require splinting of her left leg. Because of her current social situation I discussed her case [facility] They have agreed to evaluate the patient in the emergency department for further management and disposition. Medication Reconcilliation Current Medication List: was personally reviewed by me Blood Pressure Screening Blood pressure disposition: Referred to PCP Consults Time Called: 2014 Consulting Physician: Antonia Gutiérrez hospitalist Returned Call: 2014 I discussed the patient's case with Antonia Gutiérrez hospital[facility]andana. The patient will be evaluated for further management. Impression Primary Impression: Fall Additional Impressions: Left fibular fracture Contusion of left knee Contusion of left hand Scribe Attestation The scribe's documentation has been prepared under my direction and personally reviewed by me in its entirety. I confirm that the note above accurately reflects all work, treatment, procedures, and medical decision making performed by me. Departure Information Dispostion Being Evaluated By Hospitalist Referrals Zi Ramirez M.D. (PCP) Forms HOME CARE DOCUMENTATION FORM, IMPORTANT VISIT INFORMATION Patient Instructions My [facility] Problem Qualifiers Primary Impression: Fall Encounter type: initial encounter Qualified Codes: W19.XXXA - Unspecified fall, initial encounter Additional Impressions: Left fibular fracture Encounter type: initial encounter Fibula location: distal Fracture type: closed Fracture morphology: unspecified fracture morphology Qualified Codes: S82.832A - Other fracture of upper and lower end of left fibula, initial encounter for closed fracture Contusion of left knee Encounter type: initial encounter Qualified Codes: S80.02XA - Contusion of left knee, initial encounter Contusion of left hand Encounter type: initial encounter Qualified Codes: S60.222A - Contusion of left hand, initial encounter
--- NOTE | 2017-12-18 20:12 | DIAGNOSTIC IMAGING REPORT ---
PELVIS 1 OR 2 VIEW ROUTINE CLINICAL HISTORY: fall trauma. Pain. COMPARISON: None. DISCUSSION: Generalized degenerative change of the hips and bony pelvis. Degenerative change of the sacroiliac joints. No well-defined acute bony abnormality. No evidence for acetabular protrusion. There is no evidence for soft tissue swelling. IMPRESSION: Generalized degenerative change. No acute bony abnormality. The above report was generated using voice recognition software. It may contain grammatical, syntax or spelling errors. Electronically signed by: Jose Callahan M.D. 12/18/2017 8:11 PM Dictated Date/Time: 12/18/2017 8:10 PM
--- NOTE | 2017-12-18 20:14 | DIAGNOSTIC IMAGING REPORT ---
L-SPINE MIN 4 VIEWS ROUTINE HISTORY: Trauma. Pain. fall COMPARISON: 11/12/2017 FINDINGS: There is no fracture. No subluxation. Moderate degenerative disc change throughout. IMPRESSION: Degenerative change. No acute process. The above report was generated using voice recognition software. It may contain grammatical, syntax or spelling errors. Electronically signed by: Jose Callahan M.D. 12/18/2017 8:13 PM Dictated Date/Time: 12/18/2017 8:12 PM
--- NOTE | 2017-12-18 20:15 | DIAGNOSTIC IMAGING REPORT ---
L ANKLE MIN 3 VIEWS ROUTINE CLINICAL HISTORY: fall trauma COMPARISON: None. DISCUSSION: Nondisplaced cortical fracture distal fibula. Alignment is anatomic. There is a small heel spur. There is mild degenerative change throughout. Mild soft tissue edema. IMPRESSION: Nondisplaced transverse cortical fracture distal fibula. The above report was generated using voice recognition software. It may contain grammatical, syntax or spelling errors. Electronically signed by: Jose Callahan M.D. 12/18/2017 8:14 PM Dictated Date/Time: 12/18/2017 8:13 PM
--- NOTE | 2017-12-18 20:16 | DIAGNOSTIC IMAGING REPORT ---
L KNEE 1 OR 2 VIEWS ROUTINE CLINICAL HISTORY: fall trauma. Pain. COMPARISON: None. DISCUSSION: Generalized degenerative change of all major joint compartments. No significant joint effusion. Soft tissue vascular calcifications are present. No well-defined fracture. IMPRESSION: Generalized degenerative change. No acute bony abnormality. The above report was generated using voice recognition software. It may contain grammatical, syntax or spelling errors. Electronically signed by: Jose Callahan M.D. 12/18/2017 8:15 PM Dictated Date/Time: 12/18/2017 8:14 PM
--- NOTE | 2017-12-18 20:17 | DIAGNOSTIC IMAGING REPORT ---
L HAND MIN 3 VIEWS ROUTINE CLINICAL HISTORY: fall trauma. Pain. COMPARISON: None. DISCUSSION: Generalized degenerative change of all major osseous structures. Severe degenerative change first carpometacarpal joint. Significant degenerative changes of the intercarpal as well as carpal metacarpal joints. No evidence for fracture or IMPRESSION: Considerable degenerative change. No acute bony abnormality. The above report was generated using voice recognition software. It may contain grammatical, syntax or spelling errors. Electronically signed by: Jose Callahan M.D. 12/18/2017 8:16 PM Dictated Date/Time: 12/18/2017 8:15 PM
--- NOTE | 2017-12-18 20:23 | DIAGNOSTIC IMAGING REPORT ---
HEAD WITHOUT CONTRAST (CT) CT DOSE: 810.83 mGy.cm HISTORY: Trauma. Mental status change. confusion TECHNIQUE: Multiaxial CT images of the head were performed without the use of intravenous contrast. A dose lowering technique was utilized adhering to the principles of ALARA. Comparison: 07/24/2016 Findings: The paranasal sinuses and mastoid air cells are clear. The calvarium and skull base are intact. The ventricles and sulci are within normal limits. There is no mass, hematoma, midline shift, or acute infarct. There are findings of considerable chronic small vessel change in the periventricular deep right matter regions. Several old periventricular infarct are also noted. Scattered areas of encephalomalacia throughout both cerebral hemispheres are stable. There is no evidence for new or interval process. Impression: 1. No acute intracranial abnormality. 2. Chronic findings as discussed above unchanged from the prior study. The above report was generated using voice recognition software. It may contain grammatical, syntax or spelling errors. Electronically signed by: Jose Callahan M.D. 12/18/2017 8:21 PM Dictated Date/Time: 12/18/2017 8:20 PM
[2017-12-18] MEDS ORDERED: ACET-1693 PO (21:16)
[2017-12-18] MEDS ORDERED: AGG PO (21:18)
[2017-12-18] MEDS ORDERED: ATEN50TA8 PO (21:20)
[2017-12-18] MEDS ORDERED: CHLO10CA7 PO (21:23)
[2017-12-18] MEDS ORDERED: CRAN1CAP6 PO (21:26)
[2017-12-18] MEDS ORDERED: ESCI10TA17 PO (21:28)
[2017-12-18] MEDS ORDERED: LEVO-17 PO (21:31)
[2017-12-18] MEDS ORDERED: METH-1305 PO (21:34)
[2017-12-18] MEDS ORDERED: MULT-513 PO (21:36)
[2017-12-18] MEDS ORDERED: POLYSOL OPB (21:40)
[2017-12-18] MEDS ORDERED: SIMV10TA2 PO (21:41)
[2017-12-18] MEDS ORDERED: POLYSOL4 OPB (21:43)
[2017-12-18] MEDS ORDERED: TRIATAB3 PO (21:45)
[2017-12-18] MEDS ORDERED: ONDA4TAB46 PO (21:47)
[2017-12-18] MEDS ORDERED: POLYETHYLENE (MIRALAX) 17 GM PACK PO PRN (22:45)
[2017-12-18] MEDS ORDERED: ONDANSETRON 4 MG TAB PO PRN (22:45)
[2017-12-18] MEDS ORDERED: ACETAMINOPHEN 325 MG TAB PO PRN (22:45)
[2017-12-18] MEDS ORDERED: ONDANSETRON INJ 2 MG/ML 2 ML VIAL IV PRN (22:45)
[2017-12-18] MEDS ORDERED: TRAMADOL HCL 50 MG TAB PO PRN (22:45)
[2017-12-18] MEDS ORDERED: ALUMINUM/MAGNESIUM/SIMETH (MAALOX MAX) 30 ML UDC PO PRN (22:45)
[2017-12-18] MEDS ORDERED: CHLORDIAZEPOXIDE 10 MG CAP PO ONE (23:00)
[2017-12-18] MEDS ORDERED: METHENAMINE HIPPURATE 1 GM TAB PO ONE (23:00)
[2017-12-18 23:30] VITALS: BP 135/75; PULSE 70; TEMP 36.4; O2SAT 91; Ht 162.6 cm; Wt 83.9 kg
[2017-12-18] MEDS ORDERED: AZTREONAM CONSULT ACTIVE PRN (23:45)
[2017-12-18 23:50] VITALS: O2SAT 91
[2017-12-18] MEDS ORDERED: SODIUM CHLORIDE 0.9% 1000ML 1,000 ML IV SCH (23:59)
[2017-12-19] MEDS ORDERED: AZTREONAM IV 2,000 MG in DEXTROSE 5% 100ML 100 ML IV SCH ×2
[2017-12-19] MEDS ORDERED: IV FLUIDS COMPLETED PRN (01:00)
--- NOTE | 2017-12-19 01:05 | HISTORY & PHYSICAL EXAMINATION ---
DATE OF ADMISSION: 12/18/2017 CHIEF COMPLAINT: Status post fall and left fibular fracture. HISTORY OF PRESENT ILLNESS: This is an 87-year-old female, currently living at [facility], presents with fall and left fibular fracture. The patient's past medical history is significant for recurrent UTIs, history of breast cancer, history of CVA and has some weakness in the right side, history of shingles, history of diabetes, hypertension, was recently in the hospital in October with UTI and at that time she was wheelchair bound and she [facility] and she was getting rehab and she improved with ambulatory status with walking with a walker, but today at dinner table she fell on the back side with mechanical fall and she could not get up and complained pain in the left lower extremity. No loss of consciousness. Ambulance was called and brought in here and found to have left fibular fracture and she is s/p splint placed. Currently, pain is under control. The patient recently on last admission was treated for UTI with antibiotics and then recently again she was found to have urinary tract infection with E. coli pansensitive and start on Levaquin. Denies any burning micturition. No constipation, no blood in the stools. Denies any headaches, no blurred vision, no earache, no runny nose, no sore throat or difficulty swallowing. No chest pain, no shortness of breath, no cough, no abdominal pain or nausea. Currently, resting comfortable and hemodynamically stable. Granddaughter in the room, she is the power of attorney lawyer. The patient is DNR. We are called for plan for rehabilitation placement. ALLERGIES: CEPHALEXIN, CIPRO, NITROFURANTOIN, PENICILLIN, STRAWBERRIES, SULFA ANTIBIOTICS. PAST MEDICAL HISTORY: As mentioned above. PAST SURGICAL HISTORY: Left breast biopsy, partial mastectomy, cataract surgery, ultrasound guided breast biopsy. MEDICATIONS: Currently, the patient is on Tylenol 650 mg p.o. q. 4 hours p.r.n., atenolol 50 mg p.o. a.m., Librium 10 mg p.o. b.i.d., Aggrenox 1 capsule b.i.d., Lexapro 10 mg p.o. daily, glyburide 2.5 mg p.o. daily, Levaquin 250 mg p.o. q.p.m., methenamine hippurate 1 gram p.o. b.i.d., multivitamins with minerals 1 tablet p.o. daily, Zofran 4 mg p.o. q. 6 p.r.n., simvastatin 10 mg p.o. q.p.m., triamterene/hydrochlorothiazide 37.5/25 mg one tablet a.m., cranberry 250 mg p.o. b.i.d., polyethylene glycol 1 drop ophthalmic solution at bedtime, diphenhydramine 25 mg p.o. q. 4 hours p.r.n., potassium chloride 20 mEq p.o. b.i.d. FAMILY HISTORY: Significant for brother at age of 15 for colon cancer. Father at age of 40 with colon cancer, mother at age of 32 with gynecological cancer. Brother has diabetes. SOCIAL HISTORY: Quit smoking in 1991. Smoked 1.5 packs a day for 20 years. No alcohol use, no drug use. Currently, lives in a personal fpc in [facility]. REVIEW OF SYMPTOMS: As per HPI. Rest of review of systems negative. PHYSICAL EXAMINATION: GENERAL: The patient is old and frail, not in distress. VITAL SIGNS: Temperature 36.4, pulse 68, respiratory rate 18, blood pressure 103/50, oxygen 95% room air. HEENT: No pallor, no icterus. Pupils equal, round, and react to light. Oral mucosa dry. NECK: No JVD or neck masses, no carotid bruits. CARDIOVASCULAR: S1, S2 heard, regular rate and rhythm, no murmur, no gallop. RESPIRATORY SYSTEM: Normal AP diameter. No accessory muscle use. No wheezing, no crackles. ABDOMEN: Soft, bowel sounds present. Mild abdominal discomfort. No guarding, no rigidity, no distention. CENTRAL NERVOUS SYSTEM: Cranial nerves II-XII grossly intact. Mild weakness in the right lower extremity. EXTREMITIES: Left lower extremity is in wrap and dressing and splint placement. LABS: Currently not available. ASSESSMENT AND PLAN: This is an 87-year-old female who presents with mechanical fall and left fibular fracture. 1. Status post fall, mechanical and left fibular fracture. Status post splint placed and in wrapped. in the ER. Pain control, PT, OT. Plan for rehabilitation placement. Ortho consult. Social service to help with discharge planning. 2. Recurrent urinary tract infection. Currently has urinary tract infection with Escherichia coli pansensitive. Chronically on methenamine hippurate. started on Levaquin, but PATIENT IS ALLERGIC TO CIPRO. Will start on iv Azactam and monitor 4. History of diabetes. Hold p.o. medications. Place on insulin sliding scale. 5. History of cerebrovascular accident on simvastatin and Aggrenox. 6. History of hypertension, on triamterene/hydrochlorothiazide and atenolol. We will monitor blood pressure. 7. History of depression, on Lexapro. 8. History of breast cancer status post partial mastectomy. 6. Deep venous thrombosis prophylaxis, heparin subQ. DISPOSITION: Admit to observation and medical floor. PT, OT and social help with discharge planning. Code status is DNR as per discussion with the patient and the granddaughter who is the power of attorney lawyer. DESTINY
[2017-12-19] MEDS: ACETAMINOPHEN 325 MG TAB PO PRN ×3 (01:47→20:31)
[2017-12-19] MEDS ORDERED: SIMVASTATIN 10 MG TAB PO ONE (02:15)
[2017-12-19] MEDS: AZTREONAM IV 1,000 MG in DEXTROSE 5% 100ML IV SCH ×3 (05:58→22:06)
[2017-12-19 08:01] VITALS: BP 108/67; PULSE 60; TEMP 36.4; O2SAT 96
[2017-12-19] MEDS: ARTIFICIAL TEARS OP SOLN OPB SCH (09:00)
[2017-12-19] MEDS ORDERED: CRANBERRY PO SCH (09:00)
[2017-12-19] MEDS: TRIAMTERENE/HCTZ 37.5/25MG TAB PO SCH (09:24)
[2017-12-19] MEDS: DIPYRIDAMOLE/ASPIRIN CAP PO SCH ×2 (09:24→20:31)
[2017-12-19] MEDS: ESCITALOPRAM OXALATE 10 MG TAB PO SCH (09:25)
[2017-12-19] MEDS: POTASSIUM CHLORIDE 10 MEQ TABCR PO SCH ×2 (09:26→20:31)
[2017-12-19] MEDS: METHENAMINE HIPPURATE 1 GM TAB PO SCH ×2 (09:26→20:31)
[2017-12-19] MEDS: CEROVITE ADV FORMULA TAB PO SCH (09:26)
[2017-12-19] MEDS: INSULIN ASPART 100 UNITS/ML 3 ML PEN SC SCH ×4 (09:32→20:44)
[2017-12-19] MEDS: CHLORDIAZEPOXIDE 10 MG CAP PO SCH ×2 (09:37→20:31)
[2017-12-19 10:02] LABS: BASO % 0.3 %; BASO ABS # 0.02 K/uL (0-0.2); EOS % 3.2 %; EOS ABS # 0.21 K/uL (0-0.5); HEMATOCRIT 39.1 % (37-47); HEMOGLOBIN 12.7 g/dL (12.0-16.0); IG# 0.01 K/uL (0.00-0.02); LYMPH % 23.6 %; LYMPH ABS # 1.57 K/uL (1.2-3.4); MEAN CELL VOLUME 93.5 fL (80-100); MEAN CORPUSCULAR HEMOGLOBIN 30.4 pg (25-34); MEAN CORPUSCULAR HGB CONC 32.5 g/dl (32-36); MEAN PLATELET VOLUME 9.2 fL (7.4-10.4); NEUT % 66.7 %; NEUT ABS # 4.43 K/uL (1.4-6.5); PLATELET COUNT 219 K/uL (130-400); RED CELL DISTRIBUTION WIDTH CV 13.9 % (11.5-14.5); RED CELL DISTRIBUTION WIDTH SD 47.1 fL (36.4-46.3); WHITE BLOOD COUNT 6.64 K/uL (4.8-10.8)
[2017-12-19 10:18] LABS: CALCIUM 8.4 mg/dl (8.5-10.1); CREATININE 0.91 mg/dl (0.60-1.20); POTASSIUM 3.9 mmol/L (3.5-5.1)
--- NOTE | 2017-12-19 10:51 | Orthopedic Consultation ---
Orthopedic Consultation Date of Consultation: December 19, 2017. Attending Physician: Boubacar aPtel MD Reason for Consultation: Left Distal Fibular Fx (Demario Abdul,P.A.) History of Present Illness 87-year-old white female who resides at personal fci in [facility]. Family is present and they state along with the patient that she was ambulating and twisted her ankle and fell to the ground. He was having difficulty ambulating thereafter and complaining of left ankle pain and was brought to the emergency room. [facility]. Multiple x-rays were taken and was found that she had a left distal fibular fracture. Was also found that she had a recurrent urinary tract infection. She was admitted for further care and we were asked to see her for her left distal fibular fracture. (Demario Abdul,P.A.) Past Medical/Surgical History The patient's past medical history is significant for recurrent UTIs, history of breast cancer, history of CVA and has some weakness in the right side, history of shingles, history of diabetes, hypertension Medical Problems: (1) Acute renal insufficiency Status: Acute (2) Contusion of left hand Status: Acute (3) Contusion of left knee Status: Acute (4) Fall Status: Acute (5) Left fibular fracture Status: Acute (Demario Abdul,P.A.) Family History Diabetes mellitus FH: heart disease FHx: cancer Hypertension (Demario Abdul,P.A.) Diabetes mellitus FH: heart disease FHx: cancer Hypertension (David Garzon, D.O.) Social History Smoking Status: Former Smoker Drug Use: none Housing Status: lives alone Occupation Status: retired (Demario Abdul,P.A.) Allergies Coded Allergies: Cephalexin (Verified Allergy, Intermediate, rash, hives, 11/12/17) Ciprofloxacin (Verified Allergy, Intermediate, hives, 11/12/17) Nitrofurantoin (Verified Allergy, Intermediate, hives, 11/12/17) Penicillins (Verified Allergy, Intermediate, hives, 11/12/17) [place] (Verified Allergy, Intermediate, rash, 11/12/17) Sulfa Antibiotics (Verified Allergy, Intermediate, HIVES, 11/12/17) Home Medications Scheduled Atenolol (Tenormin), 50 MG PO QAM Chlordiazepoxide (Librium), 10 MG PO BID Cranberry (Vaccinium Macrocarp (Cranberry), 250 MG PO BID Dipyridamole/Aspirin (Aggrenox 25-200 mg), 1 CAP PO BID Escitalopram (Lexapro), 10 MG PO DAILY Glyburide (Diabeta), 2.5 MG PO DAILY Levofloxacin (Levaquin), 250 MG PO QPM Methenamine Hippurate (Methenamine Hippurate), 1 GM PO BID Multivitamins/Minerals (Mvi With Minerals), 1 TAB PO DAILY Polyethylene Glycol-Propylene (Systane), 1 DROPS OPB HS Polyvinyl Alcohol-Povidone (Op (Refresh), 1 DROP OPB QAM Potassium Chloride (Klor-Con Sprinkle), 10 MEQ PO BID Simvastatin (Zocor), 10 MG PO QPM Triamterene/Hctz (Triamterene/Hctz 37.5-25MG), 1 TAB PO QAM Scheduled PRN Acetaminophen Tab (Tylenol), 650 MG PO Q6H PRN for Pain or Fever Diphenhydramine HCl (Diphenhydramine HCl), 25 MG PO Q4 PRN for Itching Ondansetron Hcl (Zofran), 4 MG PO Q6H PRN for Nausea Current Inpatient Medications Current Inpatient Medications Medications (Trade) Dose Ordered Sig/Salvador Route Start Time Stop Time Status Last Admin Dose Admin Heparin Sodium (Porcine) (Heparin Sq 5000 Unit/0.5ml) 5,000 unit Q8 SQ 12/19/17 14:00 01/18/18 13:59 Al Hydrox/Mg Hydrox/Simethicone (Maalox Max Susp) 15 ml Q4H PRN PO 12/18/17 22:45 01/17/18 22:44 Polyethylene (Miralax Powder Packet) 17 gm DAILY PRN PO 12/18/17 22:45 01/17/18 22:44 Ondansetron HCl (Zofran Inj) 4 mg Q6H PRN IV 12/18/17 22:45 01/17/18 22:44 Acetaminophen (Tylenol Tab) 650 mg Q6H PRN PO 12/18/17 22:45 01/17/18 22:44 12/19/17 09:58 650 MG Atenolol (Tenormin Tab) 50 mg QAM PO 12/19/17 09:00 01/18/18 08:59 12/19/17 09:25 50 MG Chlordiazepoxide (Librium Cap) 10 mg BID PO 12/19/17 09:00 01/18/18 08:59 12/19/17 09:37 10 MG Diphenhydramine HCl (Benadryl Cap) 25 mg Q4 PRN PO 12/18/17 22:45 01/17/18 22:44 Dipyridamole/ Aspirin (Aggrenox 200MG/ 25MG Cap) 1 cap BID PO 12/19/17 09:00 01/18/18 08:59 12/19/17 09:24 1 CAP Escitalopram Oxalate (Lexapro Tab) 10 mg DAILY PO 12/19/17 09:00 01/18/18 08:59 12/19/17 09:25 10 MG Methenamine Hippurate (Urex Tab) 1 gm BID PO 12/19/17 09:00 12/24/17 08:59 12/19/17 09:26 1 GM Multivitamins/ Minerals (Multivitamin W/ Minerals Tab) 1 tab DAILY PO 12/19/17 09:00 01/18/18 08:59 12/19/17 09:26 1 TAB Ondansetron HCl (Zofran Tab) 4 mg Q6H PRN PO 12/18/17 22:45 01/17/18 22:44 Simvastatin (Zocor Tab) 10 mg QPM PO 12/19/17 21:00 01/18/18 20:59 Triamterene/HCTZ (Maxzide 37.5/25 Tab) 1 tab QAM PO 12/19/17 09:00 01/18/18 08:59 12/19/17 09:24 1 TAB Artificial Tears (Artificial Tears) 1 drops QAM OPB 12/19/17 09:00 01/18/18 08:59 Potassium Chloride (Klor-Con M10) 10 meq BID PO 12/19/17 09:00 01/18/18 08:59 12/19/17 09:26 10 MEQ Sodium Chloride 1,000 ml @ 50 mls/hr Q20H IV 12/18/17 23:59 12/19/17 23:58 5/1/18 00:34 50 MLS/HR Tramadol HCl (Ultram Tab) 25 mg Q6 PRN PO 12/18/17 22:45 01/17/18 22:44 Insulin Aspart (novoLOG ASPART) SLIDING SCALE G... ACHS SC 12/19/17 07:00 01/18/18 06:59 12/19/17 09:32 2 UNITS Aztreonam (Consult) 1 ea UD PRN N/A 12/18/17 23:45 01/17/18 23:44 Miscellaneous (Iv Fluids Completed) 1 ea PRN PRN N/A 12/19/17 01:00 12/19/18 00:59 Aztreonam 1000 mg/ Dextrose 110 ml @ 110 mls/hr Q8 IV 12/19/17 06:00 12/29/17 05:59 12/19/17 05:58 110 MLS/HR (Demario Abdul.,P.A.) Review of Systems As per admitting history and physical (Demario Abdul,P.A.) Physical Exam Date Time Temp Pulse Resp B/P (MAP) Pulse Ox O2 Delivery O2 Flow Rate FiO2 12/19/17 08:01 36.4 60 18 108/67 (81) 96 Room Air 12/18/17 23:50 91 Room Air 12/18/17 23:30 70 14 135/75 (95) 91 Room Air 12/18/17 23:30 36.4 70 14 135/75 91 Room Air 12/18/17 23:22 62 18 117/77 93 12/18/17 21:33 68 18 103/59 92 Room Air 12/18/17 20:12 69 18 156/88 97 Room Air 12/18/17 18:37 36.4 67 18 132/74 94 Room Air On physical exam the patient is an 87-year-old white female who appears her stated age. She is awake and alert and oriented. Her main complaint is left ankle discomfort at this time. On examination of her left lower extremity, she has a splint placed on the left ankle. Toes are pink and warm and she has mild decreased sensation which is normal for her. She is moving the toes quite well. Capillary refill is less than 2 seconds. No pain on palpation of the dorsum of the foot at this time or on the plantar surface of the foot. She denies calf pain on palpation. Left knee is without any ecchymosis or swelling and is nontender on palpation. She is able to gently flex and extend the knee with mild discomfort which she relates to arthritis which she has had for some time. Denies pain in the left hip. Left upper extremity is essentially within normal limits and is nontender at the shoulder elbow and wrist. She denies any new pains after the fall of the right upper or lower extremity but does have right-sided weakness from previous CVA. (Demario Abdul,P.A.) Laboratory Results Last 24 Hours Test 12/19/17 08:02 12/19/17 09:45 12/19/17 09:48 Bedside Glucose 119 mg/dl Urine Color YELLOW Urine Appearance CLEAR Urine pH 5.0 Urine Specific [place] 1.014 Urine Protein NEG Urine Glucose (UA) NEG Urine Ketones NEG Urine Occult Blood NEG Urine Nitrite NEG Urine Bilirubin NEG Urine Urobilinogen NEG Urine Leukocyte Esterase SMALL Urine WBC (Auto) 5-10 /hpf Urine RBC (Auto) 0-4 /hpf Urine Hyaline Casts (Auto) 5-10 /lpf Urine Epithelial Cells (Auto) >30 /lpf Urine Bacteria (Auto) NEG Urine Renal Epithelial Cells 0-5 /lpf Urine Yeast (Auto) BUDDING White Blood Count 6.64 K/uL Red Blood Count 4.18 M/uL Hemoglobin 12.7 g/dL Hematocrit 39.1 % Mean Corpuscular Volume 93.5 fL Mean Corpuscular Hemoglobin 30.4 pg Mean Corpuscular Hemoglobin Concent 32.5 g/dl Platelet Count 219 K/uL Mean Platelet Volume 9.2 fL Neutrophils (%) (Auto) 66.7 % Lymphocytes (%) (Auto) 23.6 % Monocytes (%) (Auto) 6.0 % Eosinophils (%) (Auto) 3.2 % Basophils (%) (Auto) 0.3 % Neutrophils # (Auto) 4.43 K/uL Lymphocytes # (Auto) 1.57 K/uL Monocytes # (Auto) 0.40 K/uL Eosinophils # (Auto) 0.21 K/uL Basophils # (Auto) 0.02 K/uL RDW Standard Deviation 47.1 fL RDW Coefficient of Variation 13.9 % Immature Granulocyte % (Auto) 0.2 % Immature Granulocyte # (Auto) 0.01 K/uL Prothrombin Time 10.6 SECONDS Prothromb Time International Ratio 1.0 Sodium Level 141 mmol/L Potassium Level 3.9 mmol/L Chloride Level 106 mmol/L Carbon Dioxide Level 31 mmol/L Anion Gap 4.0 mmol/L Blood Urea Nitrogen 24 mg/dl Creatinine 0.91 mg/dl Est Creatinine Clear Calc Drug Dose 45.7 ml/min Estimated GFR () 65.7 Estimated GFR (Non- 56.7 BUN/Creatinine Ratio 25.9 Random Glucose 145 mg/dl Calcium Level 8.4 mg/dl Magnesium Level 2.1 mg/dl (Demario Abdul,P.A.) Assessment & Plan Left distal fibular fracture nondisplaced. Plan: X-rays have been reviewed with Dr. Garzon. He will see her later this afternoon but plans will be to order a 3D walking boot to be applied to the left lower extremity. Once her boot is placed, we will have her start PT and OT , weightbearing as tolerated. (Demario Abdul,P.A.) Patient seen and examined, agree with assessment above, patient will need cam boot on LLE, WBAT, PT/OT, follow up in office x 2 weeks for repeat imaging. (David Garzon, Helen.O.)
[2017-12-19 11:15] VITALS: O2SAT 95
[2017-12-19 11:54] VITALS: BP 138/74; PULSE 70; TEMP 36.8; O2SAT 95
[2017-12-19] MEDS ORDERED: HEPARIN SOD 5000 UNIT/0.5 ML CARP SQ SCH (14:00)
[2017-12-19 15:26] VITALS: BP 110/75; PULSE 60; TEMP 36.4; O2SAT 97
[2017-12-19] MEDS ORDERED: CONSULT PHARMACY STA (16:52)
--- NOTE | 2017-12-19 17:01 | Progress Note ---
Medicine Progress Note Date & Time of Visit: December 19, 2017 at 16:48. Subjective seen resting in bed, comfortable states she feels fine overall minimal pain on the left lower leg denies abdominal pain ,nausea, fever no chest pain, dyspnea, palpitations, dizziness no other symptoms Objective Last 8 Hrs Date Time Temp Pulse Resp B/P (MAP) Pulse Ox O2 Delivery O2 Flow Rate FiO2 12/19/17 15:26 36.4 60 16 110/75 (87) 97 Room Air 12/19/17 11:54 36.8 70 18 138/74 (95) 95 Room Air 12/19/17 11:15 95 Room Air Physical Exam: General- oriented x 3, not in distress, speaks in sentences with no effort Head- atraumatic Eyes- PERRL, EOMI, anicteric ENT- oropharynx clear Neck- supple, no JVD, no adenopathy, no thyromegaly Lungs- clear breath sounds bilaterally, no rales Heart- regular rhythm; no murmur, normal rate Abdomen- normal bowel sounds, soft, nontender, no masses or hepatosplenomegaly Extremities- no pretibial edema, no calf tenderness; peripheral pulses intact left lower leg: (+) boot in place Neuro- alert, oriented x 3; no gross focal deficits Skin- warm & dry Laboratory Results: Last 24 Hours Test 12/19/17 08:02 12/19/17 09:45 12/19/17 09:48 12/19/17 12:09 Bedside Glucose 119 mg/dl 146 mg/dl Urine Color YELLOW Urine Appearance CLEAR Urine pH 5.0 Urine Specific [place] 1.014 Urine Protein NEG Urine Glucose (UA) NEG Urine Ketones NEG Urine Occult Blood NEG Urine Nitrite NEG Urine Bilirubin NEG Urine Urobilinogen NEG Urine Leukocyte Esterase SMALL Urine WBC (Auto) 5-10 /hpf Urine RBC (Auto) 0-4 /hpf Urine Hyaline Casts (Auto) 5-10 /lpf Urine Epithelial Cells (Auto) >30 /lpf Urine Bacteria (Auto) NEG Urine Renal Epithelial Cells 0-5 /lpf Urine Yeast (Auto) BUDDING White Blood Count 6.64 K/uL Red Blood Count 4.18 M/uL Hemoglobin 12.7 g/dL Hematocrit 39.1 % Mean Corpuscular Volume 93.5 fL Mean Corpuscular Hemoglobin 30.4 pg Mean Corpuscular Hemoglobin Concent 32.5 g/dl Platelet Count 219 K/uL Mean Platelet Volume 9.2 fL Neutrophils (%) (Auto) 66.7 % Lymphocytes (%) (Auto) 23.6 % Monocytes (%) (Auto) 6.0 % Eosinophils (%) (Auto) 3.2 % Basophils (%) (Auto) 0.3 % Neutrophils # (Auto) 4.43 K/uL Lymphocytes # (Auto) 1.57 K/uL Monocytes # (Auto) 0.40 K/uL Eosinophils # (Auto) 0.21 K/uL Basophils # (Auto) 0.02 K/uL RDW Standard Deviation 47.1 fL RDW Coefficient of Variation 13.9 % Immature Granulocyte % (Auto) 0.2 % Immature Granulocyte # (Auto) 0.01 K/uL Prothrombin Time 10.6 SECONDS Prothromb Time International Ratio 1.0 Sodium Level 141 mmol/L Potassium Level 3.9 mmol/L Chloride Level 106 mmol/L Carbon Dioxide Level 31 mmol/L Anion Gap 4.0 mmol/L Blood Urea Nitrogen 24 mg/dl Creatinine 0.91 mg/dl Est Creatinine Clear Calc Drug Dose 45.7 ml/min Estimated GFR () 65.7 Estimated GFR (Non- 56.7 BUN/Creatinine Ratio 25.9 Random Glucose 145 mg/dl Calcium Level 8.4 mg/dl Magnesium Level 2.1 mg/dl Date/Time Source Procedure Growth Status 12/19/17 09:45 Urine , Clean Catch Urine Culture Pending Received Assessment & Plan ASSESSMENT AND PLAN: This is an 87-year-old female who presents with mechanical fall and left fibular fracture. 1. Status post fall, mechanical and left fibular fracture. Ortho consulted, conservative management for now, 3D boot ordered, WBAT PRN analgesics PT/OT 2. Recurrent urinary tract infection. UA (+) WBCs, no bacteria started on empiric Aztreonam ff up urine culture 4. History of diabetes. Hold p.o. medications. Place on insulin sliding scale. 5. History of cerebrovascular accident on simvastatin and Aggrenox. 6. History of hypertension, on triamterene/hydrochlorothiazide and atenolol. monitor BP 7. History of depression, on Lexapro. 8. History of breast cancer status post partial mastectomy. 6. Deep venous thrombosis prophylaxis, heparin subQ. Disposition PT/OT recommending transition to inpatient Rehab Current Inpatient Medications: Current Inpatient Medications Medications (Trade) Dose Ordered Sig/[place] Route Start Time Stop Time Status Last Admin Dose Admin Al Hydrox/Mg Hydrox/Simethicone (Maalox Max Susp) 15 ml Q4H PRN PO 12/18/17 22:45 01/17/18 22:44 Polyethylene (Miralax Powder Packet) 17 gm DAILY PRN PO 12/18/17 22:45 01/17/18 22:44 Ondansetron HCl (Zofran Inj) 4 mg Q6H PRN IV 12/18/17 22:45 01/17/18 22:44 Acetaminophen (Tylenol Tab) 650 mg Q6H PRN PO 12/18/17 22:45 01/17/18 22:44 12/19/17 09:58 650 MG Atenolol (Tenormin Tab) 50 mg QAM PO 12/19/17 09:00 01/18/18 08:59 12/19/17 09:25 50 MG Chlordiazepoxide (Librium Cap) 10 mg BID PO 12/19/17 09:00 01/18/18 08:59 12/19/17 09:37 10 MG Diphenhydramine HCl (Benadryl Cap) 25 mg Q4 PRN PO 12/18/17 22:45 01/17/18 22:44 Dipyridamole/ Aspirin (Aggrenox 200MG/ 25MG Cap) 1 cap BID PO 12/19/17 09:00 01/18/18 08:59 12/19/17 09:24 1 CAP Escitalopram Oxalate (Lexapro Tab) 10 mg DAILY PO 12/19/17 09:00 01/18/18 08:59 12/19/17 09:25 10 MG Methenamine Hippurate (Urex Tab) 1 gm BID PO 12/19/17 09:00 12/24/17 08:59 12/19/17 09:26 1 GM Multivitamins/ Minerals (Multivitamin W/ Minerals Tab) 1 tab DAILY PO 12/19/17 09:00 01/18/18 08:59 12/19/17 09:26 1 TAB Ondansetron HCl (Zofran Tab) 4 mg Q6H PRN PO 12/18/17 22:45 01/17/18 22:44 Simvastatin (Zocor Tab) 10 mg QPM PO 12/19/17 21:00 01/18/18 20:59 Triamterene/HCTZ (Maxzide 37.5/25 Tab) 1 tab QAM PO 12/19/17 09:00 01/18/18 08:59 12/19/17 09:24 1 TAB Artificial Tears (Artificial Tears) 1 drops QAM OPB 12/19/17 09:00 01/18/18 08:59 Potassium Chloride (Klor-Con M10) 10 meq BID PO 12/19/17 09:00 01/18/18 08:59 12/19/17 09:26 10 MEQ Sodium Chloride 1,000 ml @ 50 mls/hr Q20H IV 12/18/17 23:59 12/19/17 23:58 12/19/17 00:34 50 MLS/HR Tramadol HCl (Ultram Tab) 25 mg Q6 PRN PO 12/18/17 22:45 01/17/18 22:44 Insulin Aspart (novoLOG ASPART) SLIDING SCALE G... ACHS SC 12/19/17 07:00 01/18/18 06:59 12/19/17 13:34 1 UNITS Aztreonam (Consult) 1 ea UD PRN N/A 12/18/17 23:45 01/17/18 23:44 Miscellaneous (Iv Fluids Completed) 1 ea PRN PRN N/A 12/19/17 01:00 12/19/18 00:59 Aztreonam 1000 mg/ Dextrose 110 ml @ 110 mls/hr Q8 IV 12/19/17 06:00 12/29/17 05:59 12/19/17 13:36 110 MLS/HR Heparin Sodium (Porcine) (Heparin Sq 5000 Unit/0.5ml) 5,000 unit Q12 SQ 12/19/17 21:00 01/18/18 13:59
[2017-12-19] MEDS: HEPARIN SOD 5000 UNIT/0.5 ML CARP SQ SCH (20:29)
[2017-12-19] MEDS: SIMVASTATIN 10 MG TAB PO SCH (20:31)
[2017-12-19] MEDS ORDERED: LEVOFLOXACIN 250 MG TAB PO SCH (21:00)
[2017-12-19 23:12] VITALS: BP 111/67; PULSE 61; TEMP 36.4; O2SAT 94
[2017-12-19 23:40] VITALS: O2SAT 94
[2017-12-20] MEDS: AZTREONAM IV 1,000 MG in DEXTROSE 5% 100ML IV SCH ×3 (06:08→21:21)
[2017-12-20 06:49] LABS: BASO % 0.7 %; BASO ABS # 0.04 K/uL (0-0.2); EOS % 6.3 %; EOS ABS # 0.35 K/uL (0-0.5); HEMATOCRIT 37.6 % (37-47); IG# 0.01 K/uL (0.00-0.02); LYMPH % 28.1 %; LYMPH ABS # 1.57 K/uL (1.2-3.4); MEAN CORPUSCULAR HGB CONC 31.9 g/dl (32-36); MEAN PLATELET VOLUME 9.1 fL (7.4-10.4); MONO % 9.3 %; MONO ABS # 0.52 K/uL (0.11-0.59); NEUT % 55.4 %; PLATELET COUNT 224 K/uL (130-400); RED CELL DISTRIBUTION WIDTH CV 13.9 % (11.5-14.5); RED CELL DISTRIBUTION WIDTH SD 47.6 fL (36.4-46.3); WHITE BLOOD COUNT 5.59 K/uL (4.8-10.8)
[2017-12-20 07:24] LABS: CALCIUM 8.4 mg/dl (8.5-10.1); CREATININE 0.86 mg/dl (0.60-1.20); POTASSIUM 3.9 mmol/L (3.5-5.1)
[2017-12-20 07:57] VITALS: BP 124/64; PULSE 64; TEMP 36.7; O2SAT 91
[2017-12-20] MEDS: ESCITALOPRAM OXALATE 10 MG TAB PO SCH (08:38)
[2017-12-20] MEDS: CEROVITE ADV FORMULA TAB PO SCH (08:38)
[2017-12-20] MEDS: DIPYRIDAMOLE/ASPIRIN CAP PO SCH ×2 (08:38→21:22)
[2017-12-20] MEDS: POTASSIUM CHLORIDE 10 MEQ TABCR PO SCH ×2 (08:38→21:21)
[2017-12-20] MEDS: TRIAMTERENE/HCTZ 37.5/25MG TAB PO SCH (08:39)
[2017-12-20] MEDS: METHENAMINE HIPPURATE 1 GM TAB PO SCH ×2 (08:39→21:22)
[2017-12-20 08:44] VITALS: O2SAT 91
[2017-12-20] MEDS: HEPARIN SOD 5000 UNIT/0.5 ML CARP SQ SCH ×2 (08:44→21:23)
[2017-12-20] MEDS: INSULIN ASPART 100 UNITS/ML 3 ML PEN SC SCH ×4 (08:44→21:00)
[2017-12-20] MEDS: ARTIFICIAL TEARS OP SOLN OPB SCH (08:47)
[2017-12-20] MEDS: CHLORDIAZEPOXIDE 10 MG CAP PO SCH ×2 (08:48→21:21)
[2017-12-20 11:45] VITALS: BP 134/62; PULSE 62; TEMP 36.6; O2SAT 96
[2017-12-20 16:47] VITALS: BP 122/69; PULSE 64; TEMP 36.7; O2SAT 97
--- NOTE | 2017-12-20 17:19 | Progress Note ---
Medicine Progress Note Date & Time of Visit: December 20, 2017 at 17:15. Subjective Seen resting in bed, sleeping but easily awakened In good spirits States she feels fine overall Ambulated today with minimal lower leg pain, no dizziness Denies chest pain, shortness of breath, palpitations, nausea No other symptoms Objective Last 8 Hrs Date Time Temp Pulse Resp B/P (MAP) Pulse Ox O2 Delivery O2 Flow Rate FiO2 12/20/17 16:47 36.7 64 16 122/69 (86) 97 Room Air 12/20/17 15:20 Room Air 12/20/17 11:45 36.6 62 20 134/62 (86) 96 Room Air Physical Exam: General- oriented x 3, not in distress, speaks in sentences with no effort Eyes-anicteric Neck- supple, no JVD Lungs- clear breath sounds bilaterally, no rales or wheezes Heart- regular rhythm; no murmur, normal rate Abdomen- normal bowel sounds, soft, nontender, no masses or hepatosplenomegaly Extremities- no pretibial edema, no calf tenderness; peripheral pulses intact left lower leg: (+) boot in place Neuro- alert, oriented x 3; no gross focal deficits Skin- warm & dry Laboratory Results: Last 24 Hours Test 12/19/17 17:16 12/19/17 20:43 12/20/17 06:13 12/20/17 08:12 Bedside Glucose 113 mg/dl 83 mg/dl 121 mg/dl White Blood Count 5.59 K/uL Red Blood Count 4.00 M/uL Hemoglobin 12.0 g/dL Hematocrit 37.6 % Mean Corpuscular Volume 94.0 fL Mean Corpuscular Hemoglobin 30.0 pg Mean Corpuscular Hemoglobin Concent 31.9 g/dl Platelet Count 224 K/uL Mean Platelet Volume 9.1 fL Neutrophils (%) (Auto) 55.4 % Lymphocytes (%) (Auto) 28.1 % Monocytes (%) (Auto) 9.3 % Eosinophils (%) (Auto) 6.3 % Basophils (%) (Auto) 0.7 % Neutrophils # (Auto) 3.10 K/uL Lymphocytes # (Auto) 1.57 K/uL Monocytes # (Auto) 0.52 K/uL Eosinophils # (Auto) 0.35 K/uL Basophils # (Auto) 0.04 K/uL RDW Standard Deviation 47.6 fL RDW Coefficient of Variation 13.9 % Immature Granulocyte % (Auto) 0.2 % Immature Granulocyte # (Auto) 0.01 K/uL Sodium Level 142 mmol/L Potassium Level 3.9 mmol/L Chloride Level 108 mmol/L Carbon Dioxide Level 29 mmol/L Anion Gap 5.0 mmol/L Blood Urea Nitrogen 21 mg/dl Creatinine 0.86 mg/dl Est Creatinine Clear Calc Drug Dose 48.3 ml/min Estimated GFR () 70.4 Estimated GFR (Non- 60.7 BUN/Creatinine Ratio 24.9 Random Glucose 108 mg/dl Calcium Level 8.4 mg/dl Magnesium Level 2.1 mg/dl Test 12/20/17 12:17 Bedside Glucose 129 mg/dl Assessment & Plan ASSESSMENT AND PLAN: This is an 87-year-old female who presents with mechanical fall and left fibular fracture. 1. Status post fall, mechanical and left fibular fracture. Ortho consulted, conservative management for now, 3D boot ordered, WBAT PRN analgesics PT/OT in progress Anticipate transition to residential facility tomorrow when bed available Follow-up with orthopedic surgeon in 1-2 weeks 2. Recurrent urinary tract infection. UA (+) WBCs, no bacteria started on empiric Aztreonam Urine culture positive for yeast Continue to monitor, awaiting final urine cultures 4. History of diabetes. Hold p.o. medications. Place on insulin sliding scale. 5. History of cerebrovascular accident on simvastatin and Aggrenox. 6. History of hypertension, on triamterene/hydrochlorothiazide and atenolol. monitor BP 7. History of depression, on Lexapro. 8. History of breast cancer status post partial mastectomy. 6. Deep venous thrombosis prophylaxis, heparin subQ. Disposition Anticipate discharge to residential facility for further PT OT tomorrow when bed is available Current Inpatient Medications: Current Inpatient Medications Medications (Trade) Dose Ordered Sig/Salvador Route Start Time Stop Time Status Last Admin Dose Admin Al Hydrox/Mg Hydrox/Simethicone (Maalox Max Susp) 15 ml Q4H PRN PO 12/18/17 22:45 01/17/18 22:44 Polyethylene (Miralax Powder Packet) 17 gm DAILY PRN PO 12/18/17 22:45 01/17/18 22:44 Ondansetron HCl (Zofran Inj) 4 mg Q6H PRN IV 12/18/17 22:45 01/17/18 22:44 Acetaminophen (Tylenol Tab) 650 mg Q6H PRN PO 12/18/17 22:45 01/17/18 22:44 12/19/17 20:31 650 MG Atenolol (Tenormin Tab) 50 mg QAM PO 12/19/17 09:00 01/18/18 08:59 12/20/17 08:38 50 MG Chlordiazepoxide (Librium Cap) 10 mg BID PO 12/19/17 09:00 01/18/18 08:59 12/20/17 08:48 10 MG Diphenhydramine HCl (Benadryl Cap) 25 mg Q4 PRN PO 12/18/17 22:45 01/17/18 22:44 Dipyridamole/ Aspirin (Aggrenox 200MG/ 25MG Cap) 1 cap BID PO 12/19/17 09:00 01/18/18 08:59 12/20/17 08:38 1 CAP Escitalopram Oxalate (Lexapro Tab) 10 mg DAILY PO 12/19/17 09:00 01/18/18 08:59 12/20/17 08:38 10 MG Methenamine Hippurate (Urex Tab) 1 gm BID PO 12/19/17 09:00 12/24/17 08:59 12/20/17 08:39 1 GM Multivitamins/ Minerals (Multivitamin W/ Minerals Tab) 1 tab DAILY PO 12/19/17 09:00 01/18/18 08:59 12/20/17 08:38 1 TAB Ondansetron HCl (Zofran Tab) 4 mg Q6H PRN PO 12/18/17 22:45 01/17/18 22:44 Simvastatin (Zocor Tab) 10 mg QPM PO 12/19/17 21:00 01/18/18 20:59 12/19/17 20:31 10 MG Triamterene/HCTZ (Maxzide 37.5/25 Tab) 1 tab QAM PO 12/19/17 09:00 01/18/18 08:59 12/20/17 08:39 1 TAB Artificial Tears (Artificial Tears) 1 drops QAM OPB 12/19/17 09:00 5/31/18 08:59 Potassium Chloride (Klor-Con M10) 10 meq BID PO 12/19/17 09:00 01/18/18 08:59 12/20/17 08:38 10 MEQ Tramadol HCl (Ultram Tab) 25 mg Q6 PRN PO 12/18/17 22:45 01/17/18 22:44 Insulin Aspart (novoLOG ASPART) SLIDING SCALE G... ACHS SC 12/19/17 07:00 01/18/18 06:59 12/20/17 12:37 3 UNITS Aztreonam (Consult) 1 ea UD PRN N/A 12/18/17 23:45 01/17/18 23:44 Miscellaneous (Iv Fluids Completed) 1 ea PRN PRN N/A 12/19/17 01:00 12/19/18 00:59 Aztreonam 1000 mg/ Dextrose 110 ml @ 110 mls/hr Q8 IV 12/19/17 06:00 12/29/17 05:59 12/20/17 14:20 110 MLS/HR Heparin Sodium (Porcine) (Heparin Sq 5000 Unit/0.5ml) 5,000 unit Q12 SQ 12/19/17 21:00 01/18/18 13:59 12/20/17 08:44 5,000 UNIT
[2017-12-20] MEDS: SIMVASTATIN 10 MG TAB PO SCH (21:22)
[2017-12-20] MEDS: ACETAMINOPHEN 325 MG TAB PO PRN (21:27)
[2017-12-20 23:30] VITALS: O2SAT 97
[2017-12-20 23:40] VITALS: BP 102/62; PULSE 65; TEMP 36.8; O2SAT 92
[2017-12-21] MEDS: ACETAMINOPHEN 325 MG TAB PO PRN ×2 (03:28→09:35)
[2017-12-21] MEDS: AZTREONAM IV 1,000 MG in DEXTROSE 5% 100ML IV SCH (06:10)
[2017-12-21 07:40] VITALS: BP 109/67; PULSE 61; TEMP 36.4; O2SAT 90
[2017-12-21 08:09] LABS: BASO % 0.9 %; BASO ABS # 0.05 K/uL (0-0.2); EOS ABS # 0.34 K/uL (0-0.5); HEMATOCRIT 35.8 % (37-47); HEMOGLOBIN 11.5 g/dL (12.0-16.0); IG# 0.02 K/uL (0.00-0.02); LYMPH % 29.8 %; LYMPH ABS # 1.68 K/uL (1.2-3.4); MEAN CELL VOLUME 93.7 fL (80-100); MEAN CORPUSCULAR HEMOGLOBIN 30.1 pg (25-34); MEAN CORPUSCULAR HGB CONC 32.1 g/dl (32-36); MONO % 12.3 %; MONO ABS # 0.69 K/uL (0.11-0.59); NEUT % 50.6 %; NEUT ABS # 2.85 K/uL (1.4-6.5); PLATELET COUNT 201 K/uL (130-400); RED CELL DISTRIBUTION WIDTH CV 13.9 % (11.5-14.5); RED CELL DISTRIBUTION WIDTH SD 47.8 fL (36.4-46.3); WHITE BLOOD COUNT 5.63 K/uL (4.8-10.8)
[2017-12-21 08:40] LABS: CALCIUM 8.3 mg/dl (8.5-10.1); CREATININE 1.02 mg/dl (0.60-1.20); POTASSIUM 3.8 mmol/L (3.5-5.1)
[2017-12-21] MEDS: CEROVITE ADV FORMULA TAB PO SCH (09:02)
[2017-12-21] MEDS: DIPYRIDAMOLE/ASPIRIN CAP PO SCH (09:02)
[2017-12-21] MEDS: POTASSIUM CHLORIDE 10 MEQ TABCR PO SCH (09:02)
[2017-12-21] MEDS: TRIAMTERENE/HCTZ 37.5/25MG TAB PO SCH (09:03)
[2017-12-21] MEDS: METHENAMINE HIPPURATE 1 GM TAB PO SCH (09:04)
[2017-12-21] MEDS: ESCITALOPRAM OXALATE 10 MG TAB PO SCH (09:04)
[2017-12-21] MEDS: CHLORDIAZEPOXIDE 10 MG CAP PO SCH (09:07)
[2017-12-21] MEDS: HEPARIN SOD 5000 UNIT/0.5 ML CARP SQ SCH (09:22)
[2017-12-21] MEDS: INSULIN ASPART 100 UNITS/ML 3 ML PEN SC SCH ×2 (09:22→12:59)
[2017-12-21] MEDS: ARTIFICIAL TEARS OP SOLN OPB SCH (09:34)
[2017-12-21 10:56] VITALS: BP 109/67; PULSE 61; TEMP 36.4; O2SAT 90
--- NOTE | 2017-12-21 12:42 | Progress Note ---
Medicine Progress Note Date & Time of Visit: December 21, 2017 at 12:36. Subjective seen resting in bedside chair comfortable in good spirits states she feels good overall minimal leg pain denies dizziness, chest pain, dyspnea no other symptoms Objective Last 8 Hrs Date Time Temp Pulse Resp B/P (MAP) Pulse Ox O2 Delivery O2 Flow Rate FiO2 12/21/17 10:56 36.4 61 16 90 Room Air 12/21/17 07:40 36.4 61 16 109/67 (81) 90 Room Air 12/21/17 07:35 Room Air Physical Exam: General- oriented x 3, not in distress, speaks in sentences with no effort Eyes-anicteric Neck- no JVD Lungs- clear breath sounds bilaterally Heart- regular rhythm; no murmur, normal rate Abdomen- normal bowel sounds, soft, nontender Extremities- no pretibial edema, no calf tenderness; peripheral pulses intact left lower leg: (+) boot in place, no leg swelling Neuro- alert, oriented x 3; no gross focal deficits Skin- warm & dry Laboratory Results: Last 24 Hours Test 12/20/17 17:17 12/20/17 20:55 12/21/17 07:58 12/21/17 08:35 Bedside Glucose 96 mg/dl 138 mg/dl 142 mg/dl White Blood Count 5.63 K/uL Red Blood Count 3.82 M/uL Hemoglobin 11.5 g/dL Hematocrit 35.8 % Mean Corpuscular Volume 93.7 fL Mean Corpuscular Hemoglobin 30.1 pg Mean Corpuscular Hemoglobin Concent 32.1 g/dl Platelet Count 201 K/uL Mean Platelet Volume 9.0 fL Neutrophils (%) (Auto) 50.6 % Lymphocytes (%) (Auto) 29.8 % Monocytes (%) (Auto) 12.3 % Eosinophils (%) (Auto) 6.0 % Basophils (%) (Auto) 0.9 % Neutrophils # (Auto) 2.85 K/uL Lymphocytes # (Auto) 1.68 K/uL Monocytes # (Auto) 0.69 K/uL Eosinophils # (Auto) 0.34 K/uL Basophils # (Auto) 0.05 K/uL RDW Standard Deviation 47.8 fL RDW Coefficient of Variation 13.9 % Immature Granulocyte % (Auto) 0.4 % Immature Granulocyte # (Auto) 0.02 K/uL Sodium Level 140 mmol/L Potassium Level 3.8 mmol/L Chloride Level 107 mmol/L Carbon Dioxide Level 29 mmol/L Anion Gap 5.0 mmol/L Blood Urea Nitrogen 27 mg/dl Creatinine 1.02 mg/dl Est Creatinine Clear Calc Drug Dose 40.7 ml/min Estimated GFR () 57.3 Estimated GFR (Non- 49.4 BUN/Creatinine Ratio 26.5 Random Glucose 125 mg/dl Calcium Level 8.3 mg/dl Magnesium Level 2.1 mg/dl Test 12/21/17 12:10 Bedside Glucose 160 mg/dl Assessment & Plan ASSESSMENT AND PLAN: This is an 87-year-old female who presents with mechanical fall and left fibular fracture. 1. Left Fibular Fracture, Status post fall, mechanical Ortho consulted, Dr. Garzon conservative management for now, 3D boot ordered, Weight bearing as tolerated PRN analgesics continue PT/OT Follow-up with orthopedic surgeon Dr. Garzon in 2 weeks for repeat imaging 2. Recurrent urinary tract infection. UA (+) WBCs, no bacteria Urine culture positive for yeast 80k empiric Aztreonam discontinued denies urinary symptoms monitor 4. History of diabetes. continue usual PO medications 5. History of cerebrovascular accident on simvastatin and Aggrenox. 6. History of hypertension on triamterene/hydrochlorothiazide and atenolol. monitor BP 7. History of depression, on Lexapro. 8. History of breast cancer status post partial mastectomy. 6. Deep venous thrombosis prophylaxis, heparin subQ given Disposition d/c back to [facility] ff up with Ortho Dr. Garzon in 2 weeks Current Inpatient Medications: Current Inpatient Medications Medications (Trade) Dose Ordered Sig/Salvador Route Start Time Stop Time Status Last Admin Dose Admin Al Hydrox/Mg Hydrox/Simethicone (Maalox Max Susp) 15 ml Q4H PRN PO 12/18/17 22:45 01/17/18 22:44 Polyethylene (Miralax Powder Packet) 17 gm DAILY PRN PO 12/18/17 22:45 01/17/18 22:44 Ondansetron HCl (Zofran Inj) 4 mg Q6H PRN IV 12/18/17 22:45 01/17/18 22:44 Acetaminophen (Tylenol Tab) 650 mg Q6H PRN PO 12/18/17 22:45 01/17/18 22:44 12/21/17 09:35 650 MG Atenolol (Tenormin Tab) 50 mg QAM PO 12/19/17 09:00 01/18/18 08:59 12/21/17 09:03 50 MG Chlordiazepoxide (Librium Cap) 10 mg BID PO 12/19/17 09:00 01/18/18 08:59 12/21/17 09:07 10 MG Diphenhydramine HCl (Benadryl Cap) 25 mg Q4 PRN PO 12/18/17 22:45 01/17/18 22:44 Dipyridamole/ Aspirin (Aggrenox 200MG/ 25MG Cap) 1 cap BID PO 12/19/17 09:00 01/18/18 08:59 12/21/17 09:02 1 CAP Escitalopram Oxalate (Lexapro Tab) 10 mg DAILY PO 12/19/17 09:00 01/18/18 08:59 12/21/17 09:04 10 MG Methenamine Hippurate (Urex Tab) 1 gm BID PO 12/19/17 09:00 12/24/17 08:59 12/21/17 09:04 1 GM Multivitamins/ Minerals (Multivitamin W/ Minerals Tab) 1 tab DAILY PO 12/19/17 09:00 01/18/18 08:59 12/21/17 09:02 1 TAB Ondansetron HCl (Zofran Tab) 4 mg Q6H PRN PO 12/18/17 22:45 01/17/18 22:44 Simvastatin (Zocor Tab) 10 mg QPM PO 12/19/17 21:00 01/18/18 20:59 12/20/17 21:22 10 MG Triamterene/HCTZ (Maxzide 37.5/25 Tab) 1 tab QAM PO 12/19/17 09:00 01/18/18 08:59 12/21/17 09:03 1 TAB Artificial Tears (Artificial Tears) 1 drops QAM OPB 12/19/17 09:00 01/18/18 08:59 12/21/17 09:34 1 DROPS Potassium Chloride (Klor-Con M10) 10 meq BID PO 12/19/17 09:00 01/18/18 08:59 12/21/17 09:02 10 MEQ Tramadol HCl (Ultram Tab) 25 mg Q6 PRN PO 12/18/17 22:45 01/17/18 22:44 Insulin Aspart (novoLOG ASPART) SLIDING SCALE G... ACHS SC 12/19/17 07:00 01/18/18 06:59 12/21/17 09:22 6 UNITS Aztreonam (Consult) 1 ea UD PRN N/A 12/18/17 23:45 01/17/18 23:44 Miscellaneous (Iv Fluids Completed) 1 ea PRN PRN N/A 12/19/17 01:00 12/19/18 00:59 Aztreonam 1000 mg/ Dextrose 110 ml @ 110 mls/hr Q8 IV 12/19/17 06:00 12/29/17 05:59 12/21/17 06:10 110 MLS/HR Heparin Sodium (Porcine) (Heparin Sq 5000 Unit/0.5ml) 5,000 unit Q12 SQ 12/19/17 21:00 01/18/18 13:59 12/21/17 09:22 5,000 UNIT
--- NOTE | 2017-12-21 12:55 | Discharge Instructions ---
Discharge Instructions Date of Service December 21, 2017. Admission Reason for Admission: Fall, L Fibular Fracture Discharge Discharge Diagnosis / Problem: LEFT FIBULAR FRACTURE, S/P FALL Discharge Goals Goal(s): Diagnostic testing, Therapeutic intervention Activity Recommendations Activity Level: Assistance Required Therapies: Physical Therapy, Occupational Therapy Weightbearing Status: Left weightbearing (as tolerated) . Additional Information Patient informed of condition: Yes Advance Directives: No (UNKNOWN) DNR: Yes Level of Care: Skilled Communicable Disease: No Prognosis: Improving Instructions / Follow-Up Instructions / Follow-Up FALL PRECAUTIONS PLEASE. WEIGHT BEARING TOLERATED. FOLLOW UP WITH ORTHO DR. RODRIGUEZ IN 2 WEEKS. REPEAT URINE CULTURE IN 2-3 DAYS. PLEASE REFER TO ACCOMPANYING HOSPITAL DISCHARGE SUMMARY. Current Hospital Diet Patient's current hospital diet: AHA Diet (Heart Healthy), Diabetes Type 2 Diet Discharge Diet Recommended Diet: AHA Diet (Heart Healthy), Diabetes Type 2 Diet Procedures Procedures Performed: HEAD CT, PELVIS/SPINE/HAND/KNEE/ANKLE XRAY Pending Studies Studies pending at discharge: no Physician Orders On Transfer Special Precautions: FALL PRECAUTIONS PLEASE. WEIGHT BEARING TOLERATED. FOLLOW UP WITH ORTHO DR. RODRIGUEZ IN 2 WEEKS. REPEAT URINE CULTURE IN 2-3 DAYS. PLEASE REFER TO ACCOMPANYING HOSPITAL DISCHARGE SUMMARY. Laboratory Results Hemoglobin A1c Test 11/13/17 06:02 Range/Units Estimated Average Glucose 157 mg/dl Hemoglobin A1c 7.1 H 4.5-5.6 % Medical Emergencies . Who to Call and When: Medical Emergencies: If at any time you feel your situation is an emergency, please call 911 immediately. . Non-Emergent Contact Non-Emergency issues call your: Primary Care Provider, Surgeon (ORTHO) Call Non-Emergent contact if: you have a fever, your pain is not controlled, your pain is worsening, you have any medication questions . . "Provider Documentation" section prepared by Boubacar Patel. . Core Measure Problem Core Measures: None
--- NOTE | 2017-12-21 13:00 | Discharge Summary ---
Discharge Summary Date of Service December 21, 2017. Discharge Summary Admission Date: Dec 18, 2017 at 22:58 Discharge Date: December 21, 2017 Discharge Disposition: snf facility Principal Diagnosis: Left Fibular Fracture, Status post fall, mechanical Secondary Diagnoses/Problems: Please refer to hospital course below. Procedures: L ANKLE MIN 3 VIEWS ROUTINE CLINICAL HISTORY: fall trauma COMPARISON: None. DISCUSSION: Nondisplaced cortical fracture distal fibula. Alignment is anatomic. There is a small heel spur. There is mild degenerative change throughout. Mild soft tissue edema. IMPRESSION: Nondisplaced transverse cortical fracture distal fibula. Consultations: Ortho Dr. Garzon Pending Studies/Follow-Up: Please refer to hospital course below. Medication Reconciliation Continued Medications: Acetaminophen Tab (Tylenol) 325 Mg Tab 650 MG PO Q6H PRN for Pain or Fever, TAB Atenolol (Tenormin) 50 Mg Tab 50 MG PO QAM, TAB Chlordiazepoxide (Librium) 10 Mg Cap 10 MG PO BID, CAP Cranberry (Vaccinium Macrocarp (Cranberry) 250 Mg Cap 250 MG PO BID Diphenhydramine HCl (Diphenhydramine HCl) 25 Mg Cap 25 MG PO Q4 PRN for Itching Dipyridamole/Aspirin (Aggrenox 25-200 mg) 1 Cap Cap 1 CAP PO BID Escitalopram (Lexapro) 10 Mg Tab 10 MG PO DAILY, TAB Glyburide (Diabeta) 2.5 Mg Tab 2.5 MG PO DAILY Methenamine Hippurate (Methenamine Hippurate) 1 Gm Tab 1 GM PO BID Multivitamins/Minerals (Mvi With Minerals) Tab 1 TAB PO DAILY, TAB Ondansetron Hcl (Zofran) 4 Mg Tab 4 MG PO Q6H PRN for Nausea, TAB Polyethylene Glycol-Propylene (Systane) 1 [place] 1 DROPS OPB HS Polyvinyl Alcohol-Povidone (Op (Refresh) 1 [place] 1 DROP OPB QAM Potassium Chloride (Klor-Con Sprinkle) 10 Meq Cap 10 MEQ PO BID Simvastatin (Zocor) 10 Mg Tab 10 MG PO QPM, TAB Triamterene/Hctz (Triamterene/Hctz 37.5-25MG) 1 Tab Tab 1 TAB PO QAM, TAB Discontinued Medications: Levofloxacin (Levaquin) 250 Mg Tab 250 MG PO QPM for 10 Days, TAB BEGIN 04/27/18 X 10 DAYS Admission Information HPI (per Admitting provider): DATE OF ADMISSION: 12/18/2017 CHIEF COMPLAINT: Status post fall and left fibular fracture. HISTORY OF PRESENT ILLNESS: This is an 87-year-old female, currently living at [facility], presents with fall and left fibular fracture. The patient's past medical history is significant for recurrent UTIs, history of breast cancer, history of CVA and has some weakness in the right side, history of shingles, history of diabetes, hypertension, was recently in the hospital in October with UTI and at that time she was wheelchair bound and she went to a [facility]p facility and she was getting rehab and she improved with ambulatory status with walking with a walker, but today at dinner table she fell on the back side with mechanical fall and she could not get up and complained pain in the left lower extremity. No loss of consciousness. Ambulance was called and brought in here and found to have left fibular fracture and she is s/p splint placed. Currently, pain is under control. The patient recently on last admission was treated for UTI with antibiotics and then recently again she was found to have urinary tract infection with E. coli pansensitive and start on Levaquin. Denies any burning micturition. No constipation, no blood in the stools. Denies any headaches, no blurred vision, no earache, no runny nose, no sore throat or difficulty swallowing. No chest pain, no shortness of breath, no cough, no abdominal pain or nausea. Currently, resting comfortable and hemodynamically stable. Granddaughter in the room, she is the power of civil rights attorney. The patient is DNR. We are called for plan for rehabilitation placement. ALLERGIES: CEPHALEXIN, CIPRO, NITROFURANTOIN, PENICILLIN, STRAWBERRIES, SULFA ANTIBIOTICS. PAST MEDICAL HISTORY: As mentioned above. PAST SURGICAL HISTORY: Left breast biopsy, partial mastectomy, cataract surgery, ultrasound guided breast biopsy. MEDICATIONS: Currently, the patient is on Tylenol 650 mg p.o. q. 4 hours p.r.n., atenolol 50 mg p.o. a.m., Librium 10 mg p.o. b.i.d., Aggrenox 1 capsule b.i.d., Lexapro 10 mg p.o. daily, glyburide 2.5 mg p.o. daily, Levaquin 250 mg p.o. q.p.m., methenamine hippurate 1 gram p.o. b.i.d., multivitamins with minerals 1 tablet p.o. daily, Zofran 4 mg p.o. q. 6 p.r.n., simvastatin 10 mg p.o. q.p.m., triamterene/hydrochlorothiazide 37.5/25 mg one tablet a.m., cranberry 250 mg p.o. b.i.d., polyethylene glycol 1 drop ophthalmic solution at bedtime, diphenhydramine 25 mg p.o. q. 4 hours p.r.n., potassium chloride 20 mEq p.o. b.i.d. Physical Exam (per Admitting): GENERAL: The patient is old and frail, not in distress. VITAL SIGNS: Temperature 36.4, pulse 68, respiratory rate 18, blood pressure 103/50, oxygen 95% room air. HEENT: No pallor, no icterus. Pupils equal, round, and react to light. Oral mucosa dry. NECK: No JVD or neck masses, no carotid bruits. CARDIOVASCULAR: S1, S2 heard, regular rate and rhythm, no murmur, no gallop. RESPIRATORY SYSTEM: Normal AP diameter. No accessory muscle use. No wheezing, no crackles. ABDOMEN: Soft, bowel sounds present. Mild abdominal discomfort. No guarding, no rigidity, no distention. CENTRAL NERVOUS SYSTEM: Cranial nerves II-XII grossly intact. Mild weakness in the right lower extremity. EXTREMITIES: Left lower extremity is in wrap and dressing and splint placement. Hospital Course ASSESSMENT AND PLAN: This is an 87-year-old female who presents with mechanical fall and left fibular fracture. 1. Left Fibular Fracture, Status post fall, mechanical Ortho consulted, Dr. Garzon conservative management for now, 3D boot ordered, Weight bearing as tolerated PRN analgesics continue PT/OT Follow-up with orthopedic surgeon Dr. Garzon in 2 weeks for repeat imaging 2. Recurrent urinary tract infection. started on Levaquin on 12/15, changed to Aztreonam on admission 12/19/17- received 1 week of antibiotics UA (+) WBCs, no bacteria Urine culture positive for yeast 80k denies urinary symptoms repeat Urine culture in 2-3 days monitor 4. History of diabetes. continue usual PO medication 5. History of cerebrovascular accident on simvastatin and Aggrenox. 6. History of hypertension on triamterene/hydrochlorothiazide and atenolol. monitor BP 7. History of depression, on Lexapro. 8. History of breast cancer status post partial mastectomy. 6. Deep venous thrombosis prophylaxis, heparin subQ given Disposition d/c back to [facility] ff up with Ortho Dr. Garzon in 2 weeks Total time spent on discharge = 40 minutes This includes examination of the patient, discharge planning, medication reconciliation, and communication with other providers. Discharge Instructions Discharge Instructions Date of Service December 21, 2017. Admission Reason for Admission: Fall, L Fibular Fracture Discharge Discharge Diagnosis / Problem: LEFT FIBULAR FRACTURE, S/P FALL Discharge Goals Goal(s): Diagnostic testing, Therapeutic intervention Activity Recommendations Activity Level: Assistance Required Therapies: Physical Therapy, Occupational Therapy Weightbearing Status: Left weightbearing (as tolerated) . Additional Information Patient informed of condition: Yes Advance Directives: No (UNKNOWN) DNR: Yes Level of Care: Skilled Communicable Disease: No Prognosis: Improving Instructions / Follow-Up Instructions / Follow-Up FALL PRECAUTIONS PLEASE. WEIGHT BEARING TOLERATED. FOLLOW UP WITH ORTHO DR. GARZON IN 2 WEEKS. REPEAT URINE CULTURE IN 2-3 DAYS. PLEASE REFER TO ACCOMPANYING HOSPITAL DISCHARGE SUMMARY. Current Hospital Diet Patient's current hospital diet: AHA Diet (Heart Healthy), Diabetes Type 2 Diet Discharge Diet Recommended Diet: AHA Diet (Heart Healthy), Diabetes Type 2 Diet Procedures Procedures Performed: HEAD CT, PELVIS/SPINE/HAND/KNEE/ANKLE XRAY Pending Studies Studies pending at discharge: no Physician Orders On Transfer Special Precautions: FALL PRECAUTIONS PLEASE. WEIGHT BEARING TOLERATED. FOLLOW UP WITH ORTHO DR. GARZON IN 2 WEEKS. REPEAT URINE CULTURE IN 2-3 DAYS. PLEASE REFER TO ACCOMPANYING HOSPITAL DISCHARGE SUMMARY. Laboratory Results Hemoglobin A1c Test 11/13/17 06:02 Range/Units Estimated Average Glucose 157 mg/dl Hemoglobin A1c 7.1 H 4.5-5.6 % Medical Emergencies . Who to Call and When: Medical Emergencies: If at any time you feel your situation is an emergency, please call 911 immediately. . Non-Emergent Contact Non-Emergency issues call your: Primary Care Provider, Surgeon (ORTHO) Call Non-Emergent contact if: you have a fever, your pain is not controlled, your pain is worsening, you have any medication questions . . "Provider Documentation" section prepared by Boubacar Patel. . Core Measure Problem Core Measures: None
== END 2017-12-21 14:00 ==
LOC: C.EDB 18:37 → C.3E 22:58 → ENRESERV 23:03
PROVIDERS: ADMIT Internal Medicine; ATTEND Internal Medicine
DX: S82.832A Other fracture of upper and lower end of left fibula, initial encounter for closed fracture (principal); S80.02XA Contusion of left knee, initial encounter; S60.222A Contusion of left hand, initial encounter; W07.XXXA Fall from chair, initial encounter; Z85.3 Personal history of malignant neoplasm of breast; E11.9 Type 2 diabetes mellitus without complications; I10 Essential (primary) hypertension; Z86.73 Personal history of transient ischemic attack (TIA), and cerebral infarction without residual deficits; M19.90 Unspecified osteoarthritis, unspecified site; G93.41 Metabolic encephalopathy; Z98.49 Cataract extraction status, unspecified eye; Z83.3 Family history of diabetes mellitus; Z82.49 Family history of ischemic heart disease and other diseases of the circulatory system; Z87.891 Personal history of nicotine dependence; Z88.1 Allergy status to other antibiotic agents; Z88.0 Allergy status to penicillin; Z88.2 Allergy status to sulfonamides; Z87.440 Personal history of urinary (tract) infections; Z86.61 Personal history of infections of the central nervous system

== ENCOUNTER → 2018-03-03 | Outpatient (CLI) | payer BC ==
[~2018-03-03] MED LIST changes: -ACET-1311 PO; +ACET-1693 PO; -CNT PO; -DOXY-300 PO; +ESCI10TA17 PO; -LSN25 PO; -LXP10 PO; +MULT-513 PO; +ONDA4TAB46 PO; -TRIA37.5 PO; +TRIATAB3 PO
== END | disposition home or self-care (01) ==
LOC: C.LABSPEC 09:28
PROVIDERS: ATTEND Family Medicine
DX: N39.0 Urinary tract infection, site not specified (principal)